=== PATIENT | female | born 1935 | race Caucasian/White ===

== ENCOUNTER 2017-06-12 13:14 | Outpatient (CLI) | payer MEDICARE, OTHER ==
--- NOTE | 2017-06-12 18:36 | ULT ---
DOPPLER ARTERIAL EVALUATION OF BOTH LOWER EXTREMITIES: Date: 06/12/17 INDICATION: Decreased pulse in feet. FINDINGS: VELOCITY MEASUREMENTS: ARTERY (cm/sec) WAVEFORM DESCRIPTION Right Lower Extremity: Common femoral 324 Biphasic Profunda femoral 121 Biphasic Proximal superficial femoral 151 Biphasic Mid superficial femoraL 122 Biphasic Distal superficial femoral 119 Biphasic Popliteal 89 Biphasic Anterior tibial 108 Monophasic Posterior tibia 123 Monophasic Dorsalis pedis 35 Monophasic Left Lower Extremity: Common femoral 61 Monophasic Profunda femoral 32 Monophasic Proximal superficial femoral 110 Monophasic Mid superficial femoral 64 Monophasic Distal superficial femoral 48 Monophasic Popliteal 43 Monophasic Anterior tibial 41 Monophasic Posterior tibial 32 Monophasic Dorsalis pedis 34 Monophasic IMPRESSION: 1. High grade stenosis involving the right common femoral artery with approaching 90% occlusion base d on the Morris scale measurements. Further evaluation with CTA of the abdomen and pelvis with bilatera l lower extremity runoff is recommended. 2. Diffuse monophasic flow within left common femoral may reflect proximal hemodynamically significa nt stenosis within the left external or common iliac vasculature. This could be further assessed with CTA examination recommended. Diffuse atherosclerotic disease is suspected within the left lower extr emity from the common femoral artery through the dorsalis pedis artery. 3. Severe atherosclerotic disease suspected within the anterior tibial, posterior tibial, and dorsal is pedis arteries of the right lower extremity. POS: [facility]
== END 2017-06-12 13:15 | disposition home or self-care (01) ==
LOC: ULT 13:14
PROVIDERS: ATTEND Family Medicine
DX: G62.9 Polyneuropathy, unspecified (principal); R09.89 Other specified symptoms and signs involving the circulatory and respiratory systems; I70.201 Unspecified atherosclerosis of native arteries of extremities, right leg
CPT/HCPCS: 93923

== ENCOUNTER 2017-07-05 07:59 | Inpatient (IN) | payer MEDICARE, OTHER ==
[2017-07-05 08:36] LABS: #Basophils 0.1 thou/uL (0.0-0.2); #Eosinphils 0.2 thou/uL (0.0-0.7); #Lymphocytes 1.9 thou/uL (1.20-3.40); #Monocytes 0.5 thou/uL (0.11-0.59); %Basophils 0.8 % (0.0-1.0); %Eosinophils 2.3 % (0.0-10.0); %Lymphocytes 24.4 % (21.0-51.0); Hematocrit 42.7 % (36.0-47.0); Red Blood Cell (RBC) Count 4.47 mill/uL (4.20-5.40); White Blood Cell (WBC) Count 7.6 thou/uL (4.8-10.8)
[2017-07-05 08:52] LABS: Anion Gap 13 mmol/L (10-20); BUN (Urea Nitrogen) 26 mg/dL (9.8-20.1); Calc. Creatinine Clearance 0 mL/min (70-130); Calcium 9.2 mg/dL (7.8-10.44); Carbon Dioxide 25 mmol/L (23-31); Chloride 103 mmol/L (98-107); Estimated GFR-MDRD 47
[2017-07-05] MEDS ORDERED: Heparin 1000 UNIT/NS 500ML(OR) 500 ML ONE (09:16)
[2017-07-05] MEDS ORDERED: Fentanyl 100 MCG/2 ML VIAL ONE (09:35)
[2017-07-05] MEDS ORDERED: Midazolam HCl 2 mg/2 ml Vial ONE (09:48)
[2017-07-05] MEDS ORDERED: Lidocaine 1% (PF) 30 ML VIAL ONE ×2 (10:13→10:43)
--- NOTE | 2017-07-05 12:43 | OP ---
PREPROCEDURE DIAGNOSIS: Severe bilateral lower extremity peripheral vascular disease with lifestyle limiting bilateral lower extremity claudication. HOUSE WORKER: Yaw Harris M.D. AERIAL INSTALLER: Solitario. POSTOPERATIVE DIAGNOSIS: Severe bilateral lower extremity peripheral vascular disease with lifestyle limiting bilateral lower extremity claudication. ANESTHESIA: Intravenous sedation and local at left groin access site. PROCEDURES PERFORMED: 1. Access left common femoral vein. 2. Access left common femoral artery. FINDINGS/INTERPRETATION: None. DESCRIPTION OF PROCEDURE: The patient was taken to angiography suite. She was prepped and draped in usual sterile fashion. Intravenous sedation was achieved with a combination of fentanyl and Versed. At the proposed left groin access site, local anesthesia was achieved with 1% Xylocaine. She had no palpable left femoral pulse which was known. Using ultrasound guidance, the left common femoral vein was inadvertently accessed with placement of a 5-Japanese sheath. Ultrasound guided access of the left common femoral artery was then achieved with the micropuncture needle, however, guidewire would not pass more than 5-6 cm. Access was lost, however, direct access was achieved with the conventional needle. Multiple guidewires were unsuccessful at cephalad passage through what was presumed to be a distal external iliac artery stenosis. Case was, therefore , aborted. 5-Japanese sheath in the common femoral vein was removed. Gentle pressure was held. Total contrast 5 mL. FLUOROSCOPY TIME: 3.2 minutes. ESTIMATED BLOOD LOSS: 50 mL. MTDD
[2017-07-05] MEDS ORDERED: HYDROcodone/Acetaminophen 5/325 mg Tablet PO PRN ×2 (13:43)
[2017-07-05] MEDS ORDERED: Ondansetron HCl/PF 4 MG/2 ML Vial SLOW IVP PRN (13:44)
[2017-07-05] MEDS ORDERED: Dextrose 50% Abboject 50 ML SYRINGE IVP PRN (13:45)
[2017-07-05] MEDS ORDERED: Dextrose 5% in Water 1,000 ML IV PRN (13:45)
[2017-07-05] MEDS ORDERED: Insulin Regular 300 UNITS/3 ML VIAL SC PRN (13:45)
[2017-07-05] MEDS ORDERED: Acetaminophen 325 MG TAB PO PRN (13:49)
[2017-07-05] MEDS ORDERED: traMADol HCl 50 MG TAB PO PRN (13:49)
[2017-07-05] MEDS ORDERED: Iopamidol 370 76% 50 ML VIAL FS ONE (15:31)
[2017-07-05 18:04] VITALS: BMI 26.9
[2017-07-05] MEDS ORDERED: Aspirin 81 mg Enteric Coated Tablet PO SCH (21:00)
[2017-07-05] MEDS: Pramipexole Di-HCl 0.25 MG TAB PO SCH (21:28)
[2017-07-05] MEDS: Ferrous Sulfate 325 MG TAB PO SCH (21:28)
[2017-07-05] MEDS: Calcium Carbonate + Vit D 1 TAB PO SCH (21:28)
[2017-07-05] MEDS: Gabapentin 300 MG CAP PO SCH (21:28)
[2017-07-06] MEDS: Levothyroxine Sodium 125 MCG TAB PO SCH (05:30)
[2017-07-06] MEDS ORDERED: Clindamycin/D5W 900 MG in Premix Bag 1 BAG IVPB SCH (06:00)
[2017-07-06] MEDS ORDERED: Clindamycin/D5W 900 mg/50 ml Premix Bag ONE (06:21)
[2017-07-06] MEDS ORDERED: Levofloxacin 500 mg/D5W 100 ml Premix Bag ONE (06:21)
[2017-07-06] MEDS ORDERED: Iothalamate Meglumine 60% 50 ML VIAL FS ONE ×2 (06:31→09:11)
[2017-07-06] MEDS ORDERED: Protamine Sulfate 50 MG/5 ML VIAL ONE ×2 (06:31→16:48)
[2017-07-06] MEDS ORDERED: Heparin 5,000 UNITS/ML VIAL ONE (06:31)
[2017-07-06] MEDS ORDERED: Fentanyl 250 MCG/5 ML VIAL ONE (07:41)
[2017-07-06] MEDS ORDERED: GLYCOTROL PO SCH (09:00)
[2017-07-06] MEDS ORDERED: Fentanyl 100 MCG/2 ML VIAL ONE ×2 (11:46→12:38)
[2017-07-06] MEDS ORDERED: Promethazine HCl 25 MG/ML VIAL SLOW IVP PRN (11:49)
[2017-07-06] MEDS ORDERED: Ondansetron HCl/PF 4 MG/2 ML Vial ONE (11:49)
[2017-07-06] MEDS ORDERED: Ondansetron HCl/PF 4 MG/2 ML Vial IVP PRN ×2 (11:49→13:24)
[2017-07-06] MEDS ORDERED: Promethazine HCl 25 MG/ML VIAL IM PRN ×2 (11:49→13:24)
[2017-07-06] MEDS ORDERED: Promethazine HCl 25 MG SUPP PR PRN (13:24)
[2017-07-06] MEDS ORDERED: Fentanyl 100 MCG/2 ML VIAL SLOW IVP PRN ×2 (13:24)
[2017-07-06] MEDS ORDERED: hydrALAZINE 20 MG/ML VIAL SLOW IVP PRN (13:24)
[2017-07-06] MEDS ORDERED: Acetaminophen 325 MG TAB PO PRN (13:24)
[2017-07-06] MEDS ORDERED: HYDROcodone/Acetaminophen 5/325 mg Tablet PO PRN (13:24)
[2017-07-06] MEDS ORDERED: Morphine PF 1 MG/ML SYR IVP PRN (13:24)
[2017-07-06] MEDS: metFORMIN XR 500 MG TAB PO SCH (13:26)
[2017-07-06] MEDS: Gabapentin 300 MG CAP PO SCH ×2 (13:27→20:52)
[2017-07-06] MEDS: Cyanocobalamin (Vitamin B-12) 1,000 MCG TAB PO SCH (13:27)
[2017-07-06] MEDS: Clindamycin/D5W 900 MG in Premix Bag 1 BAG IVPB SCH ×2 (13:47→20:52)
[2017-07-06] MEDS: HYDROcodone/Acetaminophen 5/325 mg Tablet PO PRN (13:50)
--- NOTE | 2017-07-06 14:06 | OP ---
PREOPERATIVE DIAGNOSIS: Severe bilateral lower extremity peripheral vascular disease with lifestyle limiting bilateral lower extremity claudication. SURGEON: Yaw Harris M.D. FUSING LINE INSPECTOR: None. POSTOPERATIVE DIAGNOSIS: Severe bilateral lower extremity peripheral vascular disease with lifestyle limiting bilateral lower extremity claudication. SPONGE AND NEEDLE COUNTS: Correct. ANESTHESIA: General. OPERATION PERFORMED: 1. Aortogram with iliofemoral runoff. 2. Selective left common iliac angiogram. 3. Right common femoral endarterectomy with bovine pericardium patch angioplasty. FINDINGS/INTERPRETATIONS: 1. Aortogram with iliofemoral runoff was noteworthy for a focal, subtotaled mid -distal left external iliac artery stenosis approximately 4 cm above the pelvic brim. Left common femoral artery and origins of the SFA and profunda were small , but patent. 2. Bulky, obstructive, calcified plaque involved the proximal-mid right common femoral artery. Proximal aspects of the SFA and profunda were patent with no appreciable plaque. DESCRIPTION OF OPERATION: The patient was taken to the operating room. Following the induction of general endotracheal anesthesia, the patient was prepped and draped in the usual sterile fashion. A small, oblique right groin incision was made above the inguinal crease. Dissection was carried down to the common femoral artery. Proximal aspects of the SFA and profunda were developed. At a point above the palpable plaque involving the common femoral artery, the artery was accessed with passage of the Bentson guidewire and 5- Dutch sheath. Contra catheter was advanced. Aortogram with iliofemoral runoff was performed. This did not fully delineate the presumed stenosis in the left external iliac artery. Bifurcation required negotiation with the Bentson guidewire and a RIM catheter. Rim catheter was exchanged for the Contra catheter. Contra catheter tip was now parked in the left common iliac artery. Selective left iliac angiogram was performed. This fully delineated the focal, subtotaled stenosis in the mid-distal left external iliac artery. Guidewire and catheter, however, could not bridge the stenosis. Guidewire and Contra catheter were withdrawn. Heparin dose had been given. Vascular clamps were applied to the proximal common femoral artery, SFA, and profunda. It should be mentioned that the profunda did bifurcate shortly after its takeoff. Common femoral arteriotomy was created extending cephalad to a point above the plaque and distally onto to the proximal SFA. Endarterectomy was performed. Approximately 7-8 mm above the origins of the SFA and profunda, posterior intima was tacked with a running 7-0 Prolene suture. SFA and profunda did have excellent backbleeding. Arteriotomy was then closed with the bovine pericardium patch and running 6-0 Prolene suture. Prior to securing the patch, appropriate flushing and deairing maneuvers were performed. Clamps were removed from the common femoral artery and then the SFA and profunda. The patient now had return of palpable right popliteal and dorsalis pedis pulses as well as a distinctly stronger Doppler signal heard at the posterior tibial. Heparin was partially reversed with protamine. Copious irrigation was performed. Meticulous hemostasis was assured. Wound was then closed at its deepest layer with interrupted [id number] 2-0 Vicryl sutures. Subcutaneous tissues were reapproximated with a running 2-0 Vicryl suture followed by skin closure with a 4-0 Monocryl subcuticular stitch. Dermabond was applied. The patient was subsequently awakened and taken to the recovery room. ESTIMATED BLOOD LOSS: 50 mL. FLUOROSCOPY TIME: 18.3 minutes. TOTAL CONTRAST: 25 mL. MTDD
[2017-07-06] MEDS: Amlodipine 10 MG TAB PO SCH (14:30)
[2017-07-06] MEDS: Hydrochlorothiazide 25 MG TAB PO SCH (14:31)
[2017-07-06] MEDS: Lisinopril 20 MG TAB PO SCH (14:31)
[2017-07-06] MEDS: Sodium Chloride 0.9% 1,000 ML IV SCH (15:32)
[2017-07-06] MEDS ORDERED: Heparin 10,000 UNITS/ 10 ML VIAL ONE (16:48)
[2017-07-06] MEDS ORDERED: Propofol 200 MG/20 ML VIAL ONE (16:48)
[2017-07-06] MEDS ORDERED: PHENYLEPHRINE-NS 100 MCG/ML 10 ML SYRINGE ONE (16:48)
[2017-07-06] MEDS: Calcium Carbonate + Vit D 1 TAB PO SCH (20:52)
[2017-07-06] MEDS: Ferrous Sulfate 325 MG TAB PO SCH (20:52)
[2017-07-06] MEDS: Pramipexole Di-HCl 0.25 MG TAB PO SCH (20:52)
[2017-07-07] MEDS: Clindamycin/D5W 900 MG in Premix Bag 1 BAG IVPB SCH ×2 (01:48→09:46)
[2017-07-07] MEDS: HYDROcodone/Acetaminophen 5/325 mg Tablet PO PRN ×4 (01:49→18:32)
[2017-07-07] MEDS: Sodium Chloride 0.9% 1,000 ML IV SCH ×2 (02:45→17:28)
[2017-07-07] MEDS: Levothyroxine Sodium 125 MCG TAB PO SCH (05:56)
[2017-07-07] MEDS: Lisinopril 20 MG TAB PO SCH (09:48)
[2017-07-07] MEDS: Amlodipine 10 MG TAB PO SCH (09:48)
[2017-07-07] MEDS: Cyanocobalamin (Vitamin B-12) 1,000 MCG TAB PO SCH (09:48)
[2017-07-07] MEDS: metFORMIN XR 500 MG TAB PO SCH (09:48)
[2017-07-07] MEDS: Clopidogrel Bisulfate 75 MG TAB PO SCH (09:49)
[2017-07-07] MEDS: Hydrochlorothiazide 25 MG TAB PO SCH (09:49)
[2017-07-07] MEDS: Gabapentin 300 MG CAP PO SCH ×2 (09:49→20:07)
[2017-07-07] MEDS: Clindamycin 150 MG CAP PO SCH ×2 (14:48→20:05)
[2017-07-07] MEDS: Calcium Carbonate + Vit D 1 TAB PO SCH (20:06)
[2017-07-07] MEDS: Pramipexole Di-HCl 0.25 MG TAB PO SCH (20:06)
[2017-07-07] MEDS: Ferrous Sulfate 325 MG TAB PO SCH (20:07)
[2017-07-08] MEDS: Clindamycin 150 MG CAP PO SCH (03:50)
[2017-07-08] MEDS: Sodium Chloride 0.9% 1,000 ML IV SCH (04:52)
[2017-07-08] MEDS: Levothyroxine Sodium 125 MCG TAB PO SCH (06:21)
[2017-07-08 08:55] VITALS: BP 109/69; TEMP 98.1
[2017-07-08] MEDS: metFORMIN XR 500 MG TAB PO SCH (10:54)
[2017-07-08] MEDS: Clopidogrel Bisulfate 75 MG TAB PO SCH (10:56)
[2017-07-08] MEDS: Amlodipine 10 MG TAB PO SCH (10:57)
[2017-07-08] MEDS: Cyanocobalamin (Vitamin B-12) 1,000 MCG TAB PO SCH (10:58)
[2017-07-08] MEDS: Lisinopril 20 MG TAB PO SCH (10:59)
[2017-07-08] MEDS: Hydrochlorothiazide 25 MG TAB PO SCH (10:59)
[2017-07-08] MEDS: Gabapentin 300 MG CAP PO SCH (10:59)
[2017-07-08] MEDS: HYDROcodone/Acetaminophen 5/325 mg Tablet PO PRN (11:29)
--- NOTE | 2017-07-08 14:11 | DIS ---
REASON FOR ADMISSION: Left carotid endarterectomy. CLINICAL RESUME: The patient is an 81-year-old female found to have a severe bilateral carotid arter y disease. She underwent right CEA on 05/24/2017. Yesterday, she was admitted and underwent left CE A with bovine pericardium patch angioplasty. See operative report for details. Her postoperative co urse has been unremarkable and as of this morning, she was considered stable for discharge. Follow u p will be arranged in my office in 2 weeks or sooner p.r.n. WOUND CARE: As instructed. DIET: 1800-calorie ADA. ACTIVITY: Light for the next 4-5 days. DISCHARGE MEDICATIONS: She is to resume her complete home regimen without change. This includes piero ly aspirin and Plavix.
--- NOTE | 2017-07-08 14:37 | DIS ---
REASON FOR ADMISSION: Right femoral endarterectomy and intraoperative angiography. CLINICAL RESUME: The patient is an 81-year-old female with lifestyle limiting bilateral lower extremity claudication. Outpatient CTA was most noteworthy for severe stenoses involving the right common femoral artery and left external iliac artery. Attempted percutaneous intervention to the left external iliac artery was unsuccessful as the lesion could not be crossed. She was subsequently admitted and underwent right common femoral endarterectomy with intraoperative angiography. The angiography portion did substantiate a subtotaled mid distal left external iliac artery stenosis. Right common femoral artery was involved with bulky, obstructive, calcified plaque. Following endarterectomy with bovine pericardium patch angioplasty, the patient had return of palpable right popliteal, dorsalis pedis, and posterior tibial pulses. Additionally, her right lower extremity claudication resolved. As of today, the patient was considered stable for discharge. Follow up will be arranged in my office in 2 weeks or sooner p.r.n. At that follow setting, plans were made for left femoral endarterectomy and ipsilateral retrograde intervention to the left external iliac artery stenosis. DIET: 1800 calorie ADA. WOUND CARE: As instructed. ACTIVITY: Light for the next 4-5 days. DISCHARGE MEDICATIONS: She is to resume her complete home regimen. New medication, Plavix 75 mg daily. MTDD
[2017-07-10] MEDS ORDERED: Alendronate Sodium 70 mg Tablet PO SCH (06:00)
== END 2017-07-08 11:41 | disposition home or self-care (01) | DRG 254 ==
LOC: CCL 07:59 → SURG A 13:00
PROVIDERS: ADMIT Thoracic Surgery (Cardiothoracic Vascular Surgery); ATTEND Thoracic Surgery (Cardiothoracic Vascular Surgery)
PROC: 04JY3ZZ Inspection of Lower Artery, Percutaneous Approach (ICD-10-PCS; 2017-07-05)
PROC: B41D1ZZ Fluoroscopy of Aorta and Bilateral Lower Extremity Arteries using Low Osmolar Contrast (ICD-10-PCS; principal; 2017-07-06)
PROC: 04CK0ZZ Extirpation of Matter from Right Femoral Artery, Open Approach (ICD-10-PCS; 2017-07-06)
PROC: 04UK0KZ Supplement Right Femoral Artery with Nonautologous Tissue Substitute, Open Approach (ICD-10-PCS; 2017-07-06)
DX: I70.213 Atherosclerosis of native arteries of extremities with intermittent claudication, bilateral legs (principal); E11.9 Type 2 diabetes mellitus without complications; I10 Essential (primary) hypertension; E03.9 Hypothyroidism, unspecified; Z87.891 Personal history of nicotine dependence; Z88.0 Allergy status to penicillin
CPT/HCPCS: 36416; 76001; 76942; 80048; 85025; 99152; 99153; C1769; C1887; G8978-GP-CK; G8979-GP-CI; J0360; J1642; J1644; J1956; J2001; J2250; J2405; J2704; J2720; J3010; J3490; Q9961

== ENCOUNTER 2017-07-24 05:39 | Inpatient (IN) | payer MEDICARE, OTHER ==
[2017-07-21 15:04] VITALS: BMI 27.8
[2017-07-24] MEDS ORDERED: Clindamycin/D5W 600 mg/50 ml Premix Bag ONE (06:18)
[2017-07-24] MEDS ORDERED: Levofloxacin 500 mg/D5W 100 ml Premix Bag ONE (06:18)
[2017-07-24] MEDS ORDERED: Clindamycin/D5W 900 mg/50 ml Premix Bag ONE (06:21)
[2017-07-24 06:23] LABS: #Basophils 0.1 thou/uL (0.0-0.2); #Eosinphils 0.2 thou/uL (0.0-0.7); #Lymphocytes 2.2 thou/uL (1.20-3.40); #Monocytes 0.7 thou/uL (0.11-0.59); #Neutrophils 5.3 thou/uL (1.40-6.50); %Basophils 0.8 % (0.0-1.0); %Eosinophils 2.8 % (0.0-10.0); %Lymphocytes 26.2 % (21.0-51.0); %Monocytes 7.9 % (0.0-10.0); Hematocrit 39.5 % (36.0-47.0); Mean Platelet Volume 7.5 fL (7.4-10.4); White Blood Cell (WBC) Count 8.5 thou/uL (4.8-10.8)
[2017-07-24] MEDS ORDERED: Iothalamate Meglumine 60% 50 ML VIAL FS ONE (06:36)
[2017-07-24] MEDS ORDERED: Protamine Sulfate 50 MG/5 ML VIAL ONE (06:36)
[2017-07-24] MEDS ORDERED: Heparin 5,000 UNITS/ML VIAL ONE (06:36)
[2017-07-24 06:49] LABS: Anion Gap 15 mmol/L (10-20); BUN (Urea Nitrogen) 22 mg/dL (9.8-20.1); Calc. Creatinine Clearance 44 mL/min (70-130); Calcium 9.4 mg/dL (7.8-10.44); Carbon Dioxide 25 mmol/L (23-31); Chloride 105 mmol/L (98-107); Estimated GFR-MDRD 42
[2017-07-24] MEDS ORDERED: Fentanyl 100 MCG/2 ML VIAL ONE (07:35)
[2017-07-24] MEDS ORDERED: PHENYLEPHRINE-NS 100 MCG/ML 10 ML SYRINGE ONE ×2 (09:24→10:50)
[2017-07-24] MEDS ORDERED: Calcium Chloride 1 GM/10 ML Abboject SYRINGE ONE (10:21)
[2017-07-24] MEDS ORDERED: Thrombin 5000 UNITS/5 ML VIAL ONE (10:21)
[2017-07-24] MEDS ORDERED: [UNRECOGNIZED DRUG - OTHER] PO PRN (10:43)
[2017-07-24] MEDS ORDERED: TRAMADOL HCL PO PRN (10:43)
[2017-07-24] MEDS ORDERED: ACETAMINOPHEN PO PRN (10:43)
[2017-07-24] MEDS ORDERED: Morphine 4 MG/ML VIAL SLOW IVP PRN (10:44)
[2017-07-24] MEDS ORDERED: Acetaminophen 325 MG TAB PO PRN (10:44)
[2017-07-24] MEDS ORDERED: traMADol HCl 50 MG TAB PO PRN (10:44)
[2017-07-24] MEDS ORDERED: hydrALAZINE 20 MG/ML VIAL SLOW IVP PRN (10:44)
[2017-07-24] MEDS ORDERED: Promethazine HCl 25 MG/ML VIAL IM PRN ×2 (10:44→11:14)
[2017-07-24] MEDS ORDERED: Promethazine HCl 25 MG SUPP PR PRN (10:44)
[2017-07-24] MEDS ORDERED: HYDROcodone/Acetaminophen 5/325 mg Tablet PO PRN (10:44)
[2017-07-24] MEDS ORDERED: Ondansetron HCl/PF 4 MG/2 ML Vial IVP PRN ×2 (10:44→11:14)
[2017-07-24] MEDS ORDERED: Fentanyl 100 MCG/2 ML VIAL SLOW IVP PRN (10:44)
[2017-07-24] MEDS ORDERED: ePHEDrine/0.9% NaCl/PF SYRINGE 50 mg/10 ml ONE (10:50)
[2017-07-24] MEDS ORDERED: Heparin 10,000 UNITS/ 10 ML VIAL ONE (10:50)
[2017-07-24] MEDS ORDERED: Propofol 200 MG/20 ML VIAL ONE (10:50)
[2017-07-24] MEDS ORDERED: Lidocaine 1% PF 5 ML VIAL ONE (10:50)
[2017-07-24] MEDS ORDERED: Promethazine HCl 25 MG/ML VIAL SLOW IVP PRN (11:14)
--- NOTE | 2017-07-24 12:26 | OP ---
DATE OF PROCEDURE: 07/24/2017 PREOPERATIVE DIAGNOSES: Severe left lower extremity peripheral vascular disease with lifestyle limiting left lower extremity claudication. SURGEON: Dr. Yaw Harris FEED HANDLER: None. POSTOPERATIVE DIAGNOSES: Severe left lower extremity peripheral vascular disease with lifestyle limiting left lower extremity claudication. SPONGE AND NEEDLE COUNTS: Correct. ANESTHESIA: General. OPERATION PERFORMED: 1. Selective retrograde left iliac angiogram via open left femoral exposure. 2. Stent left external iliac artery (Innova 8 x 40). 3. Left femoral endarterectomy with bovine pericardium patch angioplasty. FINDINGS AT OPERATION: 1. Subtotaled, 1.5-2 cm left external iliac artery stenosis. 2. Bulky, calcified plaque involving the left common femoral artery. DESCRIPTION OF OPERATION: The patient was taken to the operating room. Following the induction of general endotracheal anesthesia, the patient was prepped and draped in the usual sterile fashion. An oblique left groin incision was made above the inguinal crease. Dissection was carried down to the left common femoral artery with identification of the proximal SFA and profunda. There was no discernible pulse. The calcified plaque involving the mid distal common femoral artery was palpable. Superior to this the artery was accessed with the access needle and N2Care guidewire. Guidewire was able to negotiate the perceived left external iliac artery stenosis as guidewire was followed up the aorta. The short marker 6 Afghan sheath was placed. Retrograde left iliac angiogram was performed. Findings as described above. To size the left external iliac artery a [place] 7 x 40 balloon was passed. This led to selection of the 8 x 40 Innova stent. Balloon catheter was removed. Stent catheter was passed. Stent was deployed. The stent was postdilated at the proximal and distal ends with a [place] 8 x 40 balloon with a third inflation performed at the mid aspect of the stent where a slight but appreciable waist was corrected. Retrograde angiogram revealed an excellent result. Despite the presence of the sheath, the common femoral artery now had a palpable pulse. Heparin dose had been given. Vascular clamps were applied to the very proximal common femoral artery as well as the SFA and profunda. Sheath was removed. Arteriotomy was elongated distally onto the proximal SFA. The proximal SFA and profunda had no appreciable plaque. Endarterectomy was performed in standard fashion. Two 7-0 Prolene tacking sutures were required. Excellent backbleeding was observed from the profunda and SFA. The arteriotomy was then closed with the bovine pericardium patch and running 6-0 Prolene suture. Prior to securing the patch, appropriate flushing and deairing maneuvers were performed. Clamps were removed from the profunda, SFA, and common femoral artery. The patient now had a strongly palpable pulse across the patched common femoral artery and proximal aspects of the SFA and profunda. Heparin was partially reversed with protamine. Copious irrigation was performed. Meticulous hemostasis was assured. Wound was then treated with platelet-enriched and platelet-poor plasma. The wound was closed in layers with running 2-0 Vicryl sutures followed by skin closure with a 3-0 Vicryl subcuticular stitch. Dermabond was applied. The patient was subsequently awakened and taken to the recovery room in stable condition. ESTIMATED BLOOD LOSS: 30 mL. CONTRAST: Total contrast 50 mL. FLUOROSCOPY TIME 10.5 minutes. At this time patient had return of palpable left popliteal and dorsalis pedis pulses with distinctly stronger Doppler signal heard at the PT. MTDD
[2017-07-24] MEDS: Sodium Chloride 0.9% 1,000 ML IV SCH ×2 (13:51→20:33)
[2017-07-24] MEDS: Clindamycin/D5W 900 MG in Premix Bag 1 BAG IVPB SCH ×3 (13:51→18:47)
[2017-07-24] MEDS: HYDROcodone/Acetaminophen 5/325 mg Tablet PO PRN (18:49)
[2017-07-24] MEDS: Calcium Carbonate + Vit D 1 TAB PO SCH (20:37)
[2017-07-24] MEDS: Ferrous Sulfate 325 MG TAB PO SCH (20:38)
[2017-07-24] MEDS: Gabapentin 300 MG CAP PO SCH (20:38)
[2017-07-24] MEDS: Pramipexole Di-HCl 0.25 MG TAB PO SCH (20:39)
[2017-07-24] MEDS ORDERED: Aspirin 81 mg Enteric Coated Tablet PO SCH (21:00)
[2017-07-24] MEDS: Insulin Regular 300 UNITS/3 ML VIAL SC PRN (22:03)
[2017-07-25] MEDS: Clindamycin/D5W 900 MG in Premix Bag 1 BAG IVPB SCH ×2 (01:15→05:12)
[2017-07-25] MEDS: HYDROcodone/Acetaminophen 5/325 mg Tablet PO PRN ×2 (01:20→21:26)
[2017-07-25] MEDS: Sodium Chloride 0.9% 1,000 ML IV SCH ×2 (05:12→18:16)
[2017-07-25] MEDS: Levothyroxine Sodium 125 MCG TAB PO SCH (05:12)
[2017-07-25 05:35] LABS: Anion Gap 10 mmol/L (10-20); BUN (Urea Nitrogen) 22 mg/dL (9.8-20.1); Calc. Creatinine Clearance 58 mL/min (70-130); Calcium 8.3 mg/dL (7.8-10.44); Carbon Dioxide 25 mmol/L (23-31); Chloride 106 mmol/L (98-107); Estimated GFR-MDRD 58
[2017-07-25] MEDS: Gabapentin 300 MG CAP PO SCH ×2 (09:14→21:28)
[2017-07-25] MEDS: Amlodipine 10 MG TAB PO SCH (09:14)
[2017-07-25] MEDS: metFORMIN XR 500 MG TAB PO SCH (09:14)
[2017-07-25] MEDS: Cyanocobalamin (Vitamin B-12) 1,000 MCG TAB PO SCH (09:15)
[2017-07-25] MEDS: Stress 600 With Zinc 1 TAB PO SCH (09:15)
[2017-07-25] MEDS: Clopidogrel Bisulfate 75 MG TAB PO SCH ×2 (09:15→09:19)
[2017-07-25] MEDS: Hydrochlorothiazide 25 MG TAB PO SCH (09:15)
[2017-07-25] MEDS: Lisinopril 20 MG TAB PO SCH (09:15)
[2017-07-25] MEDS: Fentanyl 100 MCG/2 ML VIAL SLOW IVP PRN ×2 (10:43→15:49)
[2017-07-25] MEDS: Pramipexole Di-HCl 0.25 MG TAB PO SCH (21:27)
[2017-07-25] MEDS: Ferrous Sulfate 325 MG TAB PO SCH (21:28)
[2017-07-25] MEDS: Calcium Carbonate + Vit D 1 TAB PO SCH (21:28)
[2017-07-26] MEDS: Sodium Chloride 0.9% 1,000 ML IV SCH ×3 (03:53→22:49)
[2017-07-26] MEDS: Levothyroxine Sodium 125 MCG TAB PO SCH (06:01)
[2017-07-26] MEDS: HYDROcodone/Acetaminophen 5/325 mg Tablet PO PRN ×3 (06:04→20:20)
[2017-07-26] MEDS: Stress 600 With Zinc 1 TAB PO SCH (09:16)
[2017-07-26] MEDS: Hydrochlorothiazide 25 MG TAB PO SCH (09:17)
[2017-07-26] MEDS: Clopidogrel Bisulfate 75 MG TAB PO SCH (09:17)
[2017-07-26] MEDS: Gabapentin 300 MG CAP PO SCH ×2 (09:17→20:19)
[2017-07-26] MEDS: metFORMIN XR 500 MG TAB PO SCH (09:17)
[2017-07-26] MEDS: Amlodipine 10 MG TAB PO SCH (09:17)
[2017-07-26] MEDS: Lisinopril 20 MG TAB PO SCH (09:17)
[2017-07-26] MEDS: Cyanocobalamin (Vitamin B-12) 1,000 MCG TAB PO SCH (09:18)
[2017-07-26] MEDS: Insulin Regular 300 UNITS/3 ML VIAL SC PRN (12:30)
[2017-07-26] MEDS: Ferrous Sulfate 325 MG TAB PO SCH (20:19)
[2017-07-26] MEDS: Pramipexole Di-HCl 0.25 MG TAB PO SCH (20:19)
[2017-07-26] MEDS: Calcium Carbonate + Vit D 1 TAB PO SCH (20:19)
[2017-07-27] MEDS: Levothyroxine Sodium 125 MCG TAB PO SCH (05:31)
[2017-07-27] MEDS: HYDROcodone/Acetaminophen 5/325 mg Tablet PO PRN (07:38)
[2017-07-27 08:00] VITALS: BP 151/79
[2017-07-27] MEDS: Lisinopril 20 MG TAB PO SCH (09:22)
[2017-07-27] MEDS: metFORMIN XR 500 MG TAB PO SCH (09:22)
[2017-07-27] MEDS: Clopidogrel Bisulfate 75 MG TAB PO SCH (09:22)
[2017-07-27] MEDS: Gabapentin 300 MG CAP PO SCH (09:23)
[2017-07-27] MEDS: Hydrochlorothiazide 25 MG TAB PO SCH (09:23)
[2017-07-27] MEDS: Cyanocobalamin (Vitamin B-12) 1,000 MCG TAB PO SCH (09:23)
[2017-07-27] MEDS: Amlodipine 10 MG TAB PO SCH (09:23)
[2017-07-27] MEDS: Stress 600 With Zinc 1 TAB PO SCH (09:26)
[2017-07-27 10:45] VITALS: TEMP 98
[2017-07-27] MEDS: Sodium Chloride 0.9% 1,000 ML IV SCH (11:09)
--- NOTE | 2017-07-27 13:12 | DIS ---
REASON FOR ADMISSION: Left lower extremity revascularization. CLINICAL RESUME: The patient is an 81-year-old female who underwent right femoral endarterectomy with bovine pericardium patch angioplasty and intraoperative angio's on 07/06/2017 which provided relief of her right lower extremity claudication and return of palpable right popliteal, DP, and PT pulses. On 07/24/2017 she was readmitted and underwent stenting to the left external iliac artery and left femoral endarterectomy with bovine pericardium patch angioplasty. This did provide relief of her left lower extremity claudication with return of palpable left popliteal and DP pulses and a much stronger Doppler signal heard at the PT. As of today, she was considered stable for discharge. Followup arranged in my office in 2 weeks or sooner p.r.n. Wound care as instructed. ACTIVITY: Light for the next 4-5 days. DIET: 1800-calorie ADA. DISCHARGE MEDICATIONS: She is to resume her complete home regimen without change. This includes the daily 81 mg aspirin and 75 mg Plavix. NEW MEDICATION: Amma 5/325 mg 1-2 q.4-6 hours p.r.n. MTDD
[2017-07-31] MEDS ORDERED: Alendronate Sodium 70 mg Tablet PO SCH (06:00)
== END 2017-07-27 11:40 | disposition home health service (06) | DRG 254 ==
LOC: SURG A 05:39
PROVIDERS: ADMIT Thoracic Surgery (Cardiothoracic Vascular Surgery); ATTEND Thoracic Surgery (Cardiothoracic Vascular Surgery)
PROC: 04CL0ZZ Extirpation of Matter from Left Femoral Artery, Open Approach (ICD-10-PCS; principal; 2017-07-24)
PROC: 04UL0KZ Supplement Left Femoral Artery with Nonautologous Tissue Substitute, Open Approach (ICD-10-PCS; 2017-07-24)
PROC: 047J3DZ Dilation of Left External Iliac Artery with Intraluminal Device, Percutaneous Approach (ICD-10-PCS; 2017-07-24)
DX: I70.213 Atherosclerosis of native arteries of extremities with intermittent claudication, bilateral legs (principal); E11.51 Type 2 diabetes mellitus with diabetic peripheral angiopathy without gangrene; I10 Essential (primary) hypertension; Z87.891 Personal history of nicotine dependence; Z90.49 Acquired absence of other specified parts of digestive tract; Z90.710 Acquired absence of both cervix and uterus; I70.8 Atherosclerosis of other arteries
CPT/HCPCS: 36415; 36416; 76001; 80048; 85025; C1725; G8978-GP-CI; G8979-GP-CI; J1642; J1644; J1956; J2001; J2704; J2720; J3010; J3490; Q9961

== ENCOUNTER 2017-10-15 20:08 | Emergency (ER) | payer MEDICARE, OTHER ==
[~2017-10-15 20:08] MED LIST: ISOVUE-370 76%-LOCM 1 ML ONE
[2017-10-15] MEDS ORDERED: Morphine 4 MG/ML VIAL ONE (21:13)
[2017-10-15] MEDS ORDERED: Ondansetron HCl/PF 4 MG/2 ML Vial ONE (21:13)
[2017-10-15 21:46] LABS: #Eosinphils 0.2 thou/uL (0.0-0.7); #Lymphocytes 1.9 thou/uL (1.20-3.40); #Monocytes 0.6 thou/uL (0.11-0.59); #Neutrophils 4.5 thou/uL (1.40-6.50); %Basophils 0.4 % (0.0-1.0); %Lymphocytes 26.4 % (21.0-51.0); %Neutrophils 62.2 % (42.0-75.0); Hemoglobin 12.2 g/dL (12.0-16.0); Mean Corpuscular HGB CONC 32.9 g/dL (32.0-36.0); Mean Corpuscular Hemoglobin 29.7 pg (27.0-31.0); Mean Corpuscular Volume 90.1 fl (81.0-99.0); Mean Platelet Volume 7.4 fL (7.4-10.4); Platelet Count 276 thou/uL (130-400); RBC Distribution Width 12.9 % (11.5-14.5); Red Blood Cell (RBC) Count 4.11 mill/uL (4.20-5.40); White Blood Cell (WBC) Count 7.2 thou/uL (4.8-10.8)
[2017-10-15 21:53] LABS: INR-International Normal Ratio 1.1; PTT 36.4 SEC (22.9-36.1); Prothrombin Time 14.5 SEC (12.0-14.7)
[2017-10-15 22:05] LABS: CKMB 2.8 ng/mL (0-6.6); Troponin I Less than 0.010 ng/mL (< 0.028)
[2017-10-15 22:15] LABS: ALT (SGPT) 11 U/L (8-55); AST (SGOT) 15 U/L (5-34); Albumin 4.3 g/dL (3.4-4.8); Alkaline Phosphatase 57 U/L (40-150); Anion Gap 15 mmol/L (10-20); BUN (Urea Nitrogen) 35 mg/dL (9.8-20.1); Bilirubin, Total 0.3 mg/dL (0.2-1.2); CRP (Inflammatory) Less than 0.50 mg/dL (= or < 0.5); Calc. Creatinine Clearance 0 mL/min (70-130); Calcium 9.5 mg/dL (7.8-10.44); Carbon Dioxide 23 mmol/L (23-31); Chloride 101 mmol/L (98-107); Estimated GFR-MDRD 46; Globulin 2.9 g/dL (2.4-3.5); Glucose 130 mg/dL (83-110); Potassium 4.8 mmol/L (3.5-5.1); Protein, Total 7.2 g/dL (6.0-8.3); Sodium 134 mmol/L (136-145)
--- NOTE | 2017-10-15 23:55 | CT ---
CT ANGIOGRAM OF THE AORTA WITH BILATERAL LOWER EXTREMITY RUNOFF WITH IV CONTRAST AND 3D POST PROCESSI NG: History: Bilateral groin pain with stents placed in July 2014 vertebral arteries. Reports numbnes s and tingling in bilateral feet. Patient also has a history of peritoneal neuropathy. FINDINGS: Comparison made with exam of 06-18-17. There are vascular calcifications and focal atherosclerotic formation in the peripheral arterial syst em without evidence of high grade stenosis or occlusion. No evidence of abdominal aortic aneurysm or dissection is seen. There is good flow in the arteries of the lower extremities with two vessel flow to the ankles on either side. No high grade stenosis is seen at the origins of the celiac, IMAs, or t he renal arteries. There is a calcified granuloma in the right lung base. No free air or free fluid is seen in the abdom en or pelvis. There are small renal cysts. The patient is post cholecystectomy and hysterectomy. Panc reas and adrenal glands are normal. No hypervascular liver mass is seen. There are degenerative bose es in the spine. IMPRESSION: Atherovascular disease without evidence of significant stenosis or occlusion. 3 Vessel flow is noted to ankles bilaterally. POS: [facility]
== END 2017-10-16 01:10 | disposition home or self-care (01) ==
LOC: ERS 20:08
DX: L03.314 Cellulitis of groin (principal); E03.9 Hypothyroidism, unspecified; I10 Essential (primary) hypertension; E11.40 Type 2 diabetes mellitus with diabetic neuropathy, unspecified; F32.9 Major depressive disorder, single episode, unspecified
CPT/HCPCS: 75635; 80053; 82553; 83605; 84484; 85025; 85610; 85652; 85730; 86140; 93005; 96374; 96375; J2270; J2405

== ENCOUNTER 2017-11-07 13:47 | Emergency (ER) | payer MEDICARE, OTHER ==
--- NOTE | 2017-11-07 14:34 | RAD ---
PORTABLE CHEST: 11/07/2017 PROVIDED CLINICAL HISTORY: Dizziness. Fall. COMPARISON: 09/27/2016 FINDINGS: Evaluation is limited by patient body habitus. The cardiac and mediastinal silhouette is unchanged i n appearance. No focal consolidation, pleural fluid, or pneumothorax apparent. IMPRESSION: No evidence for an acute cardiopulmonary process. If there is persistent clinical concern, consider follow-up PA and lateral views of the chest. POS: [facility]
[2017-11-07 14:46] LABS: #Eosinphils 0.2 thou/uL (0.0-0.7); #Lymphocytes 1.6 thou/uL (1.20-3.40); #Monocytes 0.5 thou/uL (0.11-0.59); #Neutrophils 3.6 thou/uL (1.40-6.50); %Basophils 0.3 % (0.0-1.0); %Lymphocytes 27.5 % (21.0-51.0); %Monocytes 8.7 % (0.0-10.0); %Neutrophils 60.6 % (42.0-75.0); ALT (SGPT) 11 U/L (8-55); AST (SGOT) 20 U/L (5-34); Alkaline Phosphatase 68 U/L (40-150); Anion Gap 15 mmol/L (10-20); BUN (Urea Nitrogen) 27 mg/dL (9.8-20.1); Bilirubin, Total 0.3 mg/dL (0.2-1.2); CK (CPK) 84 U/L (29-168); Calc. Creatinine Clearance 0 mL/min (70-130); Calcium 8.7 mg/dL (7.8-10.44); Carbon Dioxide 22 mmol/L (23-31); Chloride 95 mmol/L (98-107); Estimated GFR-MDRD 38; Globulin 2.9 g/dL (2.4-3.5); Glucose 141 mg/dL (83-110); Hemoglobin 11.7 g/dL (12.0-16.0); Mean Corpuscular HGB CONC 32.5 g/dL (32.0-36.0); Mean Corpuscular Volume 89.2 fl (81.0-99.0); Mean Platelet Volume 8.5 fL (7.4-10.4); Platelet Count 251 thou/uL (130-400); Potassium 5.1 mmol/L (3.5-5.1); Protein, Total 6.9 g/dL (6.0-8.3); RBC Distribution Width 13.1 % (11.5-14.5); Red Blood Cell (RBC) Count 4.02 mill/uL (4.20-5.40); Sodium 127 mmol/L (136-145)
[2017-11-07 14:52] LABS: CKMB 2.9 ng/mL (0-6.6); Troponin I Less than 0.010 ng/mL (< 0.028)
[2017-11-07] MEDS ORDERED: Adacel (T-DAP) 0.5 ML VIAL ONE (17:41)
--- NOTE | 2017-11-07 17:43 | RAD ---
LEFT HUMERUS TWO VIEWS: 11/07/17 HISTORY: 82-year-old female with history of syncope with fall and left arm injury. FINDINGS/IMPRESSION: Two views of the left humerus demonstrates some mild degenerative changes of the shoulder and elbow j oints. No fracture or dislocation. POS: [facility]
--- NOTE | 2017-11-07 17:51 | CT ---
BRAIN CT WITHOUT IV CONTRAST 11/07/17 HISTORY: 82-year-old female with history of syncope with fall. There is some age related atrophy bilaterally. No focal mass or midline shift. No intra or extra-axia l hemorrhage. Sinuses and mastoids are clear. IMPRESSION: Mild atrophy and chronic white matter ischemic change. No mass, bleed or other acute process. POS: [facility]
--- NOTE | 2017-11-07 17:53 | CT ---
CERVICAL SPINE CT SCAN WITHOUT IV CONTRAST: 11/07/17 HISTORY: 82-year-old female with history of syncope and fall. There is heterogeneous bone demineralization. Disc osteophytosis changes noted at C5-C6 with some ass ociated mild to moderate canal, lateral recess, and foraminal stenosis. no acute fracture or facet di slocation. IMPRESSION: No fracture or facet dislocation. Disc osteophytosis at C5-C6. Heterogeneous bone demineralization. POS: [facility]
--- NOTE | 2017-11-09 15:02 | EKG ---
Test Reason : Blood Pressure : / mmHG Vent. Rate : 084 BPM Atrial Rate : 084 BPM P-R Int : 146 ms QRS Dur : 090 ms QT Int : 374 ms P-R-T Axes : 002 -13 042 degrees QTc Int : 441 ms Normal sinus rhythm Low voltage QRS Borderline ECG Confirmed by JUANA MAYA ([id number]), editorial manager ELIDA BAUM ([id number]) on 11/09/2017 3:00:44 PM Referred By: Confirmed By:JUANA MAYA
== END 2017-11-07 18:32 | disposition home or self-care (01) ==
LOC: ERS 13:47
DX: R55 Syncope and collapse (principal); S50.811A Abrasion of right forearm, initial encounter; E11.40 Type 2 diabetes mellitus with diabetic neuropathy, unspecified; E03.9 Hypothyroidism, unspecified; I10 Essential (primary) hypertension; W19.XXXA Unspecified fall, initial encounter; Y93.H2 Activity, gardening and landscaping; F32.9 Major depressive disorder, single episode, unspecified
CPT/HCPCS: 70450; 71045; 72125; 80053; 82550; 82553; 84484; 85025; 90471; 90715; 93005; 94760; 96360

== ENCOUNTER 2018-02-01 15:41 | Emergency (ER) | payer MEDICARE, OTHER ==
--- NOTE | 2018-02-01 17:22 | RAD ---
FRONTAL RADIOGRAPH CHEST FRONTAL UPRIGHT AND SUPINE IMAGING OF ABDOMEN AND PELVIS 02/01/18 COMPARISON: None. HISTORY: Abdominal pain and cramping. FINDINGS: Frontal radiograph chest demonstrates no pneumothorax, pleural fluid, focal consolidation or alveolar edema. There is tortuosity of the descending thoracic aorta. The right hemidiaphragm is elevated. Th ere are postoperative clips noted in the right upper quadrant suggesting prior cholecystectomy. There is significant stool seen throughout the colon. There is no evidence for small bowel obstruction or free intraperitoneal air. Inguinal postoperative clips are noted bilaterally. Vascular stent material is seen within the left hemipelvis. IMPRESSION: Numerous incidental findings. No radiographic evidence of acute cardiopulmonary disease, small bowel obstruction, or free intraperitoneal air. POS: [facility]
== END 2018-02-01 17:06 | disposition home or self-care (01) ==
LOC: ERS 15:41
DX: K59.00 Constipation, unspecified (principal); E03.9 Hypothyroidism, unspecified; I10 Essential (primary) hypertension; E11.40 Type 2 diabetes mellitus with diabetic neuropathy, unspecified; F32.9 Major depressive disorder, single episode, unspecified; Z79.899 Other long term (current) drug therapy; Z79.82 Long term (current) use of aspirin; Z79.84 Long term (current) use of oral hypoglycemic drugs
CPT/HCPCS: 74022

== ENCOUNTER 2018-02-05 18:07 | Emergency (ER) | payer MEDICARE, OTHER ==
[~2018-02-05 18:07] MED LIST changes: +Iopamidol 370 76% 50 ML VIAL FS ONE
[2018-02-05 19:27] LABS: #Eosinphils 0.1 thou/uL (0.0-0.7); #Lymphocytes 1.9 thou/uL (1.20-3.40); #Monocytes 0.5 thou/uL (0.11-0.59); #Neutrophils 5.3 thou/uL (1.40-6.50); %Basophils 0.3 % (0.0-1.0); %Eosinophils 1.9 % (0.0-10.0); %Lymphocytes 23.9 % (21.0-51.0); %Monocytes 6.8 % (0.0-10.0); %Neutrophils 67.1 % (42.0-75.0); Hemoglobin 14.2 g/dL (12.0-16.0); Mean Corpuscular Hemoglobin 29.9 pg (27.0-31.0); Mean Corpuscular Volume 90.5 fL (78.0-98.0); Mean Platelet Volume 8.7 fL (7.4-10.4); Platelet Count 220 thou/uL (130-400); RBC Distribution Width 13.9 % (11.5-14.5); Red Blood Cell (RBC) Count 4.74 mill/uL (4.20-5.40); White Blood Cell (WBC) Count 7.9 thou/uL (4.8-10.8)
[2018-02-05 19:50] LABS: ALT (SGPT) 8 U/L (8-55); AST (SGOT) 15 U/L (5-34); Albumin 4.2 g/dL (3.4-4.8); Alkaline Phosphatase 63 U/L (40-150); Anion Gap 12 mmol/L (10-20); BUN (Urea Nitrogen) 22 mg/dL (9.8-20.1); Bilirubin, Total 0.4 mg/dL (0.2-1.2); Calc. Creatinine Clearance 0 mL/min (70-130); Calcium 9.4 mg/dL (7.8-10.44); Carbon Dioxide 29 mmol/L (23-31); Chloride 100 mmol/L (98-107); Estimated GFR-MDRD 44; Globulin 3.1 g/dL (2.4-3.5); Glucose 119 mg/dL (83-110); Lipase 12 U/L (8-78); Potassium 4.6 mmol/L (3.5-5.1); Protein, Total 7.3 g/dL (6.0-8.3); Sodium 136 mmol/L (136-145)
[2018-02-05] MEDS ORDERED: hydrALAZINE 20 MG/ML VIAL ONE (22:02)
--- NOTE | 2018-02-05 23:44 | CT ---
CT ABDOMEN AND PELVIS WITH CONTRAST: HISTORY: Constipation. COMPARISON: CT from 2017. FINDINGS: The lung bases are clear. No pericardial effusion. Calcified granuloma in the lingula. No dilated loops of large or small bowel. Mild diverticular disease of the sigmoid colon without act hollie current inflammation. Mild ectasia and tortuosity of the abdominal aorta. No hydronephrosis. Multiple calcified granuloma in the spleen. No intrahepatic or extrahepatic biliary dilatation. Prior cholecystectomy. There is chronic herniation of bowel within the right greater sciatic foramen, without evidence of ob struction. A vascular stent is present in the left external iliac artery with distal flow. Sutures are present in the bilateral groin. Pancreatic atrophy is present. Mild osseous demineralization. There is a compression fracture at L1, which is unchanged from the co mparison examination, with near complete height loss, as well as impingement of the spinal canal narr owing approximately 4 mm. IMPRESSION: 1. No acute inflammatory process of the abdomen and pelvis. 2. 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 3. Compression fracture of L1 with complete anterior height loss and loss of the superior endplate a nd inferior endplate with retropulsion and narrowing of the spinal canal to approximately 4 mm. POS: [facility]
== END 2018-02-06 00:18 | disposition home or self-care (01) ==
LOC: ERS 18:07
DX: K59.00 Constipation, unspecified (principal); E03.9 Hypothyroidism, unspecified; I10 Essential (primary) hypertension; E11.40 Type 2 diabetes mellitus with diabetic neuropathy, unspecified; Z79.899 Other long term (current) drug therapy; Z79.84 Long term (current) use of oral hypoglycemic drugs; Z79.82 Long term (current) use of aspirin
CPT/HCPCS: 36415; 74177; 80053; 82274; 83690; 85025; 96374; J0360

== ENCOUNTER 2018-02-09 12:37 | Outpatient (CLI) | payer MEDICARE, OTHER ==
--- NOTE | 2018-02-09 13:18 | RAD ---
CERVICAL SPINE FIVE VIEWS: History: Neck pain. FINDINGS: Vertebral body heights are maintained. Mild disc space height loss at the C3-4 level and severe loss at the C5-6 level. Osteophytosis is also most pronounced at the C5-6 level. Cervicothoracic junction is intact. Minimal anterior spondylolisthesis upon flexion at the C4-5 level with reduction upon exte nsion. No aggressive osseous erosions. Calcification overlies the left carotid bifurcation. IMPRESSION: Cervical spondylosis with mild translational motion at the C4-5 level. Osteoarthrosis. Atherosclerosis. POS: YAMILA
--- NOTE | 2018-02-09 13:35 | RAD ---
LUMBAR SPINE 4 VIEWS: TECHNIQUE: Lateral views were obtained in the neutral, flexion, and extension position with patient standing. FINDINGS: There is burst compression deformity involving the L1 vertebra with mild retropulsion of the posterio r cortex. There is a kyphosis with apex at L1. The T11 and T12 vertebrae appear maintained. The ot her lumbar vertebrae maintain height and alignment. There are degenerative changes with osteophytes. Loss of disk space and degenerative disk changes at L5-S1. No other evidence of listhesis. IMPRESSION: A burst-type compression deformity at the L1 vertebra with vertebra plana-type deformity. Mild retro pulsion of the posterior cortex. CT lumbar spine could better define the osseous abnormalities. POS: [facility]
== END 2018-02-09 12:38 | disposition home or self-care (01) ==
LOC: TBSIIMAG 12:37
PROVIDERS: ATTEND Surgery
DX: M50.30 Other cervical disc degeneration, unspecified cervical region (principal); M54.16 Radiculopathy, lumbar region; M54.6 Pain in thoracic spine; R27.0 Ataxia, unspecified; M47.892 Other spondylosis, cervical region; I70.90 Unspecified atherosclerosis; M19.90 Unspecified osteoarthritis, unspecified site; M43.8X6 Other specified deforming dorsopathies, lumbar region
CPT/HCPCS: 72050; 72110; 72141; 72146; 72148

== ENCOUNTER 2018-05-11 10:03 | Day surgery (SDC) | payer MEDICARE, OTHER ==
[2018-05-10 16:07] VITALS: BMI 26.6
[2018-05-11] MEDS ORDERED: Fentanyl 100 MCG/2 ML VIAL ONE (11:59)
[2018-05-11] MEDS ORDERED: Midazolam HCl 2 mg/2 ml Vial ONE ×2 (11:59→13:09)
--- NOTE | 2018-05-11 15:53 | MRI ---
MRI LUMBAR SPINE NONCONTRAST: DATE: 05/11/18 HISTORY: 82-year-old female with M50.30, M54.16, M54.6, and R27.0. Low back pain, lumbar spinal stenosis, lumb ar spondylosis, and bilateral lumbar radiculopathy. COMPARISON: 12/29/16. FINDINGS: There is a transitional level at the lumbosacral junction. Report of the previous study labeled the level of burst fracture as T12. However, now, with the benefit of a thoracic spine MRI today for reference, the labeling of the level s will be changed. From the long field of view sagittal maintenance manager image for the thoracic spine MRI, it is demonstrated that the burst fracture actually involves T12 rather than L1. Therefore, for the purposes of this report, the level of greatest lordotic angulation will now be richard ignated as L4-5 rather than L5-S1. This patient will be considered to have a sacralized L5. There is no major bone marrow edema. T11-12, T12, and L1-2: Old burst fracture of T12 with severe collapse of the anterior 75% of the florentin tebral body, and significant chronic bony retropulsion causing moderate to severe central spinal yodit l stenosis, with posterior displacement of the spinal cord and flattening of the spinal cord in the a nteroposterior dimension. Mild to moderate bilateral neural foraminal stenosis. Gibbus deformity. L1-2: Mild bilateral degenerative facet changes. Mild bilateral neural foraminal stenosis. Mild cent ral spinal canal stenosis. L2-3: Moderate ligamentum flavum thickening. Mild to moderate bilateral degenerative facet changes. Moderate bilateral neural foraminal stenosis. Moderate to severe central spinal canal stenosis. Diffu se disc bulge. L3-4: Diffuse disc bulge. Moderate ligamentum flavum thickening. Moderate bilateral degenerative fac et changes. Diffuse disc bulge. Moderate to severe central spinal canal stenosis. Moderate bilateral neural foraminal stenosis. L4-5: Moderate to severe disc space narrowing. Mild to moderate bilateral neural foraminal stenosis, right greater than left. Mild central spinal canal stenosis. Mild to moderate bilateral degenerative facet changes. L5-S1: Disc is hypoplastic. No acquired central or neural foraminal stenosis. There is no major interval change overall. Conus medullaris terminates at L1-2. Incidentally, there is high grade neural foraminal stenosis bilaterally at T9-10 and T10-11. IMPRESSION: 1. Transitional level at lumbosacral junction: sacralized L5. The designation of levels has changed, compared to prior study, now with the benefit of a thoracic spine MRI to count levels. See above com ments. 2. Old burst fracture of T12 with severe collapse of the vertebral body and significant osseous retr opulsion, causing high grade chronic central spinal canal stenosis, with chronic flattening of the lo wer spinal cord. 3. High grade central spinal canal stenosis at L3-4 and L2-3. ELIZABETH Weldon POS: [facility]
--- NOTE | 2018-05-11 15:54 | MRI ---
MRI THORACIC SPINE NONCONTRAST: DATE: 05/11/2018. HISTORY: An 82-year-old female with thoracic spine pain. FINDINGS: The vertebral body heights are maintained. There are no major bone marrow signal abnormalities. The thoracic spinal cord is normal in size and ____, with no evidence of syrinx, and no extended cord co mpression. No high-grade central canal stenosis at any level in the thoracic spine proper. There ar e hypertrophic degenerative changes causing at least moderate bilateral neural foraminal stenosis, at T9-10 and T10-11. There is an old severe burst fracture of T12 with significant bony retropulsion, and prominent gibbus angulation. Perivertebral spaces are unremarkable. IMPRESSION: 1. Old burst fracture of T12 with significant bony retropulsion into the spinal canal. See separate report of the lumbar spine MRI. 2. Bilateral neural foraminal stenosis at T9-10 and T10-11. 3. Otherwise, no major pathology of the thoracic spine superior to T12. POS: [facility]
--- NOTE | 2018-05-11 15:59 | MRI ---
MRI CERVICAL SPINE NONCONTRAST: Date: 05/11/18 HISTORY: 82-year-old female with cervicalgia. TECHNIQUE: All images are degraded by patient motion, especially all of the axial images, which are almost nondi agnostic with regard to evaluation of spinal canal caliber and neural foraminal stenosis. The axial i mages were repeated, but the results are the same, severely degraded images. The findings described b elow are based almost entirely on sagittal images. FINDINGS: Cervical spinal cord is normal in size and signal. No high grade facet DJD. There is severe disc spac e narrowing at C5-6 with end plate irregularity and broad, circumferential disc-osteophytic bar compl ex which encroaches upon the anterior aspect of the spinal canal, causing moderate to severe central spinal canal stenosis at that level. There is no high grade central spinal canal stenosis at any othe r level. The degree of neural foraminal stenosis is difficult to assess because of the severely degra ded axial images. There is no Chiari I malformation. No major bone marrow signal abnormality identifi ed. IMPRESSION: 1. Limited study due to severe motion on the axial images, rendering all of the axial sequences nond iagnostic, despite multiple repeated attempts. 2. Moderate to severe degenerative disc disease isolated to the C5-6 level, where there is high grad e central spinal canal stenosis. 3. No abnormality identified at any of the other levels. POS: [facility]
== END 2018-05-11 14:50 | disposition home or self-care (01) ==
LOC: SDC/OP 10:03 → EDSTATUS 12:00 → SDC/OP 14:50
PROVIDERS: ATTEND Surgery
DX: M50.322 Other cervical disc degeneration at C5-C6 level (principal); M48.02 Spinal stenosis, cervical region; M51.34 Other intervertebral disc degeneration, thoracic region; M48.04 Spinal stenosis, thoracic region; M51.16 Intervertebral disc disorders with radiculopathy, lumbar region; M47.26 Other spondylosis with radiculopathy, lumbar region; M48.061 Spinal stenosis, lumbar region without neurogenic claudication; R27.0 Ataxia, unspecified; Z88.0 Allergy status to penicillin; Z88.1 Allergy status to other antibiotic agents; Z91.012 Allergy to eggs; Z91.02 Food additives allergy status; Z91.048 Other nonmedicinal substance allergy status; Z79.899 Other long term (current) drug therapy; Z79.82 Long term (current) use of aspirin; Z79.84 Long term (current) use of oral hypoglycemic drugs
CPT/HCPCS: 72141; 72146; 72148; J2250; J3010

== ENCOUNTER 2018-11-05 08:51 | Emergency (ER) | payer MEDICARE, OTHER ==
--- NOTE | 2018-11-05 11:38 | ULT ---
VENOUS DOPPLER ULTRASOUND OF THE LEFT LOWER EXTREMITY: Date: 11/05/18 HISTORY: Left lower leg pain and edema. TECHNIQUE: Morris scale ultrasound with color flow and spectral Doppler imaging of the deep venous system of the l eft lower extremity is performed. FINDINGS: There is good flow, compression, and augmentation noted in the left common femoral, femoral, deep fem oral, popliteal, posterior tibial, and greater saphenous veins. IMPRESSION: No evidence of deep venous thrombosis in the left lower extremity. POS: [facility]
== END 2018-11-05 11:30 | disposition home or self-care (01) ==
LOC: ERS 08:51
DX: M79.662 Pain in left lower leg (principal); E03.9 Hypothyroidism, unspecified; I10 Essential (primary) hypertension; E11.40 Type 2 diabetes mellitus with diabetic neuropathy, unspecified; F32.9 Major depressive disorder, single episode, unspecified; Z79.899 Other long term (current) drug therapy; Z79.84 Long term (current) use of oral hypoglycemic drugs; Z79.82 Long term (current) use of aspirin

== ENCOUNTER 2019-03-10 21:21 | Emergency (ER) | payer MEDICARE, OTHER ==
[~2019-03-10 21:21] MED LIST changes: -Iopamidol 370 76% 50 ML VIAL FS ONE
[2019-03-10 22:50] LABS: #Basophils 0.1 thou/uL (0.0-0.2); #Eosinphils 0.2 thou/uL (0.0-0.7); #Lymphocytes 1.3 thou/uL (1.20-3.40); #Monocytes 0.6 thou/uL (0.11-0.59); #Neutrophils 6.5 thou/uL (1.40-6.50); %Basophils 0.8 % (0.0-1.0); %Eosinophils 2.5 % (0.0-10.0); %Monocytes 7.3 % (0.0-10.0); %Neutrophils 74.4 % (42.0-75.0); Hemoglobin 13.5 g/dL (12.0-16.0); Mean Corpuscular HGB CONC 32.9 g/dL (32.0-36.0); Mean Corpuscular Hemoglobin 30.2 pg (27.0-31.0); Mean Corpuscular Volume 91.9 fL (78.0-98.0); Mean Platelet Volume 8.4 fL (7.4-10.4); Platelet Count 201 thou/uL (130-400); Red Blood Cell (RBC) Count 4.47 mill/uL (4.20-5.40); White Blood Cell (WBC) Count 8.8 thou/uL (4.8-10.8)
[2019-03-10 23:10] LABS: ALT (SGPT) 12 U/L (8-55); AST (SGOT) 12 U/L (5-34); Albumin 3.8 g/dL (3.4-4.8); Alkaline Phosphatase 84 U/L (40-150); Anion Gap 11 mmol/L (10-20); BUN (Urea Nitrogen) 16 mg/dL (9.8-20.1); Bilirubin, Total 0.3 mg/dL (0.2-1.2); Calc. Creatinine Clearance 0 mL/min (70-130); Calcium 9.1 mg/dL (7.8-10.44); Carbon Dioxide 26 mmol/L (23-31); Chloride 100 mmol/L (98-107); Estimated GFR-MDRD 59; Globulin 2.9 g/dL (2.4-3.5); Glucose 211 mg/dL (83-110); Lipase 27 U/L (8-78); Potassium 4.7 mmol/L (3.5-5.1); Protein, Total 6.7 g/dL (6.0-8.3); Sodium 132 mmol/L (136-145)
[2019-03-10 23:37] LABS: Bilirubin Negative (Negative); Blood, Urine Negative (Negative); Clarity Clear (Clear); Glucose, Urine (Dipstick) Normal (Negative); Leukocyte Negative Leu/uL (Negative); Nitrite Negative (Negative); Protein, Urine (Dipstick) Negative (Neg-Trace); Urobilinogen Normal mg/dL (Less than 2)
[2019-03-11] MEDS ORDERED: traMADol HCl 50 MG TAB ONE (00:32)
--- NOTE | 2019-03-11 07:48 | CT ---
CHEST AND ABDOMEN AND PELVIC CT SCAN WITH IV CONTRAST THORACIC SPINE CT SCAN WITH IV CONTRAST LIMITED LUMBAR SPINE CT SCAN WITH IV CONTRAST LIMITED: HISTORY: Injury, chest pain following a fall. FINDINGS: There is no pneumothorax. No pleural effusion or pericardial effusion. No mediastinal hematoma. Th e aorta appears unremarkable with considerable ectasia and tortuosity. No pericardial effusion. The liver, pancreas, spleen, and adrenal glands are unremarkable. Status post cholecystectomy. Small b ilateral renal cysts. No renal hydronephrosis. No abnormal fluid collection within the abdomen or p endy. No evidence for retroperitoneal hematoma. Moderate fecal material in the colon including a m inimally dilated rectum. Diffuse bony demineralization. IMPRESSION: No significant acute posttraumatic process in the chest, abdomen, or pelvis. Other findings as above . THORACIC SPINE CT SCAN WITH IV CONTRAST LIMITED: FINDINGS: Very severe burst fracture of T12 with severe retropulsion but stable when compared to a 05/11/2018 MR I study. Bony demineralization. Generalized spondylosis. No acute fracture or dislocation. IMPRESSION: Severe old burst fracture of T12 with marked retropulsion but stable. No acute fracture. LUMBAR SPINE CT SCAN WITH IV CONTRAST LIMITED: FINDINGS/IMPRESSION: Bony demineralization. No acute fracture or dislocation. POS: [facility]
== END 2019-03-11 00:51 | disposition home or self-care (01) ==
LOC: ERS 21:21
DX: S20.211A Contusion of right front wall of thorax, initial encounter (principal); E03.9 Hypothyroidism, unspecified; E11.40 Type 2 diabetes mellitus with diabetic neuropathy, unspecified; I10 Essential (primary) hypertension; Z79.84 Long term (current) use of oral hypoglycemic drugs; Z79.899 Other long term (current) drug therapy; W19.XXXA Unspecified fall, initial encounter
CPT/HCPCS: 36415; 51701; 71260; 74177; 80053; 81003; 83690; 85025; 93005; A4353; Q9966

== ENCOUNTER 2019-03-16 16:02 | Observation (INO) | payer MEDICARE, OTHER ==
--- NOTE | 2019-03-16 17:27 | RAD ---
XR Chest 1 View Portable History: Altered mental status Comparison: Radiograph 2018 Findings: Heart size mildly enlarged. There is tortuosity of the thoracic aorta. No pneumothorax. No acute osseous abnormality. Impression: Similar examination of the chest. No acute intrathoracic abnormality.
[2019-03-16 17:33] LABS: #Eosinphils 0.1 thou/uL (0.0-0.7); #Lymphocytes 1.1 thou/uL (1.20-3.40); #Monocytes 0.6 thou/uL (0.11-0.59); #Neutrophils 8.4 thou/uL (1.40-6.50); %Basophils 0.3 % (0.0-1.0); %Lymphocytes 10.7 % (21.0-51.0); %Monocytes 5.5 % (0.0-10.0); %Neutrophils 82.5 % (42.0-75.0); Hemoglobin 15.2 g/dL (12.0-16.0); Mean Corpuscular HGB CONC 33.4 g/dL (32.0-36.0); Mean Corpuscular Hemoglobin 30.7 pg (27.0-31.0); Mean Platelet Volume 8.7 fL (7.4-10.4); Platelet Count 267 thou/uL (130-400); RBC Distribution Width 13.4 % (11.5-14.5); Red Blood Cell (RBC) Count 4.97 mill/uL (4.20-5.40); White Blood Cell (WBC) Count 10.1 thou/uL (4.8-10.8)
--- NOTE | 2019-03-16 17:53 | CT ---
CT Brain WO Con History: Altered mental status Comparison: CT brain 2018 Findings: Mild atrophy. No acute hemorrhage or infarct. No midline shift or mass effect. Calvarium is intact. Paranasal sinuses and mastoids are clear. Moderate chronic microvascular ischemi c changes. Impression: Chronic findings. No acute intracranial abnormality.
[2019-03-16 17:55] LABS: ALT (SGPT) 18 U/L (8-55); AST (SGOT) 18 U/L (5-34); Albumin 4.4 g/dL (3.4-4.8); Alkaline Phosphatase 75 U/L (40-150); Anion Gap 15 mmol/L (10-20); BUN (Urea Nitrogen) 26 mg/dL (9.8-20.1); Bilirubin, Total 0.5 mg/dL (0.2-1.2); CK (CPK) 70 U/L (29-168); Calc. Creatinine Clearance 0 mL/min (70-130); Calcium 9.6 mg/dL (7.8-10.44); Carbon Dioxide 26 mmol/L (23-31); Chloride 101 mmol/L (98-107); Estimated GFR-MDRD 54; Globulin 3.3 g/dL (2.4-3.5); Glucose 181 mg/dL (83-110); Lipase 10 U/L (8-78); Potassium 4.4 mmol/L (3.5-5.1); Protein, Total 7.7 g/dL (6.0-8.3); Sodium 138 mmol/L (136-145)
[2019-03-16] MEDS ORDERED: Ondansetron ODT 4 MG TAB SL PRN (19:44)
[2019-03-16] MEDS ORDERED: Ondansetron PF 4 MG/2 ML Vial IVP PRN (19:44)
[2019-03-16 20:10] VITALS: BMI 29.0
[2019-03-16] MEDS: Sodium Chloride 0.9% 1,000 ML IV SCH (20:52)
[2019-03-16] MEDS ORDERED: hydrALAZINE 20 MG/ML VIAL SLOW IVP PRN (21:01)
[2019-03-16] MEDS ORDERED: hydrALAZINE 20 MG/ML VIAL SLOW IVP SCH (21:30)
[2019-03-16] MEDS ORDERED: Polyethylene Glycol 3350 17 GM Packet PO PRN (22:19)
--- NOTE | 2019-03-17 01:18 | HP ---
CHIEF COMPLAINT: Generalized weakness. HISTORY OF PRESENT ILLNESS: Ms. Jeong is an 83-year-old female with past medical history of hypertension, hyperlipidemia, hypothyroidism, diabetes mellitus type 2, who had presented to [facility] earlier today after she has been experiencing worsening generalized weakness and some general malaise over the last week. She states that she had fallen roughly 2 weeks ago and had bruised her ribs. She states since then when she would stand up too quickly, she would feel dizzy and lightheaded. She states that this was off and on over the last 2 weeks. She states that she had fallen again on Monday and was seen in the ED, a CT chest, abdomen, and pelvis was performed and showed a very severe burst fracture of T12 with severe retropulsion, but stable when compared to previous MRI in 2018 with no acute fracture noted and she was later discharged home. She states that due to her not feeling well, she has not taken her home medications in a week and she has not had a bowel movement in about 5 days and states that she has not had any appetite to eat or drink. She had denied any fever, chills, any headache, blurred vision, chest pain, palpitations, shortness of breath, or abdominal pain. Her initial workup included a portable chest x-ray, which showed no acute findings. CT brain without contrast was also performed and showed chronic findings with no acute intracranial abnormality demonstrated. Her labs indicated TSH elevated at 11.65 with a load free T4 of 0.51, otherwise unremarkable, troponin was negative. BNP was also negative and an ammonia level was normal. She states that her PCP is Dr. Gotti. REVIEW OF SYSTEMS: All other systems reviewed and found to be negative unless mentioned in the HPI. PAST MEDICAL HISTORY: Hypertension, hyperlipidemia, diabetes mellitus type 2, hypothyroidism. PAST SURGICAL HISTORY: Hysterectomy, appendectomy, thyroidectomy, tonsillectomy, stent in right and left groin, left iliac artery stent. PSYCHIATRIC HISTORY: Includes depression. SOCIAL HISTORY: The patient denies alcohol, tobacco, or illicit drug use. KNOWN ALLERGIES: Adhesive tape, azithromycin, chocolate, egg, and penicillin. CURRENT HOME MEDICATIONS: 1. Aspirin 81 mg daily. 2. Amlodipine 10 mg oral daily. 3. Acetaminophen with codeine 1 tablet oral q.6 hours p.r.n. pain. 4. Pregabalin 75 mg p.o. b.i.d. 5. Zofran 4 mg p.o. q.6 hours as needed for nausea. 6. Atenolol 25 mg p.o. daily. 7. Duloxetine 30 mg oral b.i.d. 8. Levothyroxine 150 mcg p.o. daily. 9. Lisinopril 30 mg p.o. b.i.d. 10. Metformin 500 mg p.o. daily. PHYSICAL EXAMINATION: VITAL SIGNS: BP 157/77, pulse 70, respirations 15, temperature 98.1 degrees Fahrenheit, O2 saturations 98% on room air. GENERAL: The patient is awake, alert, and oriented x3. She is currently lying comfortably in bed and in no acute distress. HEENT: Atraumatic, normocephalic. Edentulous noted. NECK: Soft, supple. Trachea midline. CARDIOVASCULAR: Positive S1 and S2. Regular rate and rhythm. No murmur auscultated. RESPIRATORY: Clear to auscultation bilaterally. No wheezes, rales, or rhonchi. ABDOMEN: Soft, nontender. Bowel sounds present. MUSCULOSKELETAL: Strength is at baseline. Moves all extremities equal. No edema noted. NEUROLOGIC: Cranial nerves 2 through 12 grossly intact. No focal deficits noted. Speech intact and normal. Gait not assessed. SKIN: Warm, dry. Bandage to posterior right knee noted. PSYCHIATRIC: Good mood and affect. LABORATORY DATA: WBC 10.1, RBC 4.97, hemoglobin 15.2, platelet 267. Sodium 138, potassium 4.4, anion gap 15, BUN 26, creatinine 0.99, estimated GFR 54, glucose 181, ammonia 16, CK 70, troponin less than 0.010 x2. Lipase 10. TSH 11.6540, free T4 0.51. DIAGNOSTIC IMAGING: Portable chest x-ray shows heart size is mildly enlarged and there is tortuosity of the thoracic artery. No pneumothorax. No acute osseous abnormality noted. CT brain without contrast showed no acute hemorrhage or infarct. No midline shift, or mass effect noted. ASSESSMENT AND PLAN: 1. Near syncope, this could likely be secondary to orthostatic hypotension. Therefore, orthostatic vital signs will be checked. She is currently asymptomatic at this time. Her TSH is elevated and low free T4 due to her not taking her home medications in about a week, which also could be a cause. 2. Hypothyroidism. Restart home dose of levothyroxine 150 mcg daily. 3. Hypertension. Monitor blood pressure and other vital signs closely. Resume home medications. 4. Generalized weakness. Start physical therapy and occupational therapy. 5. Diabetes mellitus type 2. Continue frequent Accu-Cheks. Restart home metformin and add insulin sliding scale. 6. Deep venous thrombosis and gastrointestinal prophylaxis. 7. Code status, full code. 8. Surrogate decision maker is her brother, Dominik Carrasco. DISPOSITION: Pending further workup and clinical findings. Job ID: [id number]
[2019-03-17] MEDS: Acetaminophen/Codeine 30-300mg Tablet PO PRN ×2 (02:15→14:35)
[2019-03-17] MEDS ORDERED: HumaLOG 300 UNITS/3 ML VIAL SC PRN ×2 (02:21)
[2019-03-17] MEDS ORDERED: Dextrose 5% in Water 1,000 ML IV PRN (02:21)
[2019-03-17] MEDS ORDERED: Dextrose 50% Abboject 50 ML SYRINGE SLOW IVP PRN (02:21)
[2019-03-17] MEDS: Levothyroxine 150 MCG TAB PO SCH (05:36)
[2019-03-17] MEDS: Sodium Chloride 0.9% 1,000 ML IV SCH (06:49)
[2019-03-17] MEDS ORDERED: Senokot S 8.6-50 MG TAB PO SCH ×2 (09:00→12:00)
[2019-03-17] MEDS: Atenolol 25 MG TAB PO SCH (09:44)
[2019-03-17] MEDS: Aspirin Chewable 81 MG TAB PO SCH (09:45)
[2019-03-17] MEDS: Lisinopril 20 MG TAB PO SCH ×2 (09:45→20:47)
[2019-03-17] MEDS: metFORMIN XR 500 MG TAB PO SCH (09:46)
[2019-03-17] MEDS: Amlodipine 10 MG TAB PO SCH (09:46)
[2019-03-17] MEDS: DULoxetine 30 MG CAP PO SCH ×2 (09:46→20:47)
[2019-03-17] MEDS ORDERED: Magnesium Citrate 300 ML BOT PO SCH (11:45)
[2019-03-17] MEDS ORDERED: Ondansetron PF 4 MG/2 ML Vial SLOW IVP PRN (14:10)
--- NOTE | 2019-03-17 20:19 | PDOC.HOSPP ---
- Subjective Encounter Date: 03/17/19 Encounter Time: 10:00 Subjective: f/u for general weakness and recent fall. Work up showing poorly controlled hypothyroidism. Pt states she lives in assisted-living at [facility] and receives assistance with groceries/errands, does not drive. No CP, unilateral weakness. - Objective Vital Signs & Weight: Vital Signs (12 hours) Temp Pulse Resp BP BP BP BP 03/17/19 16:40 97.8 F 63 16 164/73 H 03/17/19 11:42 97.4 F L 64 18 167/74 H 157/79 H 159/81 H 03/17/19 08:19 97.6 F 72 18 143/76 H Pulse Ox 03/17/19 16:40 96 03/17/19 11:42 96 03/17/19 08:19 97 Weight Weight 174 lb 8 oz I&O: 03/16/19 03/17/19 03/18/19 06:59 06:59 06:59 Intake Total 1248 970 Output Total 760 Balance 488 970 Result Diagrams: 03/16/19 17:24 03/16/19 17:24 Additional Labs: Accuchecks 03/17/19 03/17/19 03/17/19 17:10 10:55 05:42 POC Glucose 177 H 177 H 154 H Laboratory Tests 10/11/18 10/26/18 03/16/19 12:08 10:50 17:24 Ammonia Troponin I 0.024 TSH 3rd Generation 3.4312 0.3164 L Free T4 1.46 03/16/19 03/16/19 03/16/19 17:24 17:24 19:55 Ammonia 16 L Troponin I Less than 0.010 TSH 3rd Generation 11.6540 H Free T4 03/16/19 23:05 Ammonia Troponin I TSH 3rd Generation Free T4 0.51 L Radiology Reviewed by me: Yes (PCXR - no acute changes; CT brain - no acute changes) EKG Reviewed by me: Yes (Tele - SR) ROS - Medication Medications: Active Medications Generic Name Dose Route Start Last Admin Trade Name Freq PRN Reason Stop Dose Admin Acetaminophen/Codeine Phosphate 1 tab 03/16/19 23:49 03/17/19 14:35 Tylenol #3 PO 1 tab Q6HR PRN Administration Pain Amlodipine Besylate 10 mg 03/17/19 09:00 03/17/19 09:46 Norvasc PO 10 mg DAILY ANGIE Administration Aspirin 81 mg 03/17/19 09:00 03/17/19 09:45 Aspirin Chewable PO 81 mg QAM ANGIE Administration Atenolol 25 mg 03/17/19 09:00 03/17/19 09:44 Tenormin PO 25 mg DAILY ANGIE Administration Duloxetine HCl 30 mg 03/17/19 09:00 03/17/19 09:46 Cymbalta PO 30 mg BID ANGIE Administration Hydralazine HCl 10 mg 03/16/19 21:01 03/17/19 04:19 Apresoline SLOW IVP 10 mg Q4H PRN Administration Hypertension Levothyroxine Sodium 150 mcg 03/17/19 06:00 03/17/19 05:36 Synthroid PO 150 mcg 0600 ANGIE Administration Lisinopril 30 mg 03/17/19 09:00 03/17/19 09:45 Zestril PO 30 mg BID ANGIE Administration Metformin HCl 500 mg 03/17/19 08:00 03/17/19 09:46 Glucophage Xr PO 500 mg QAM-WM ANGIE Administration Ondansetron HCl 4 mg 03/17/19 14:10 03/17/19 14:29 Zofran SLOW IVP 4 mg Q6H PRN Administration Nausea/Vomiting Polyethylene Glycol 17 gm 03/16/19 22:19 03/16/19 23:53 Miralax PO 17 gm DAILYPRN PRN Administration Constipation - Exam NAD, awake alert Eye: PERRL, anicteric sclera ENT: normocephalic atraumatic, no oropharyngeal lesions Neck: supple, symmetric, no JVD, no thyromegaly, no lymphadenopathy Heart: RRR, no murmur, no gallops, no rubs, normal peripheral pulses Respiratory: CTAB, no wheezes, no rales, no ronchi, normal chest expansion Gastrointestinal: soft, non-tender, non-distended, normal bowel sounds, no palpable masses Extremities: no cyanosis, no clubbing, no edema Skin: normal turgor, no lesions Neurological: CN's grossly intact, no focal deficits, no new deficit Musculoskeletal: normal tone, normal strength Psychiatric: normal affect, A&O x 3 Hosp A/P (1) Hypothyroidism Code(s): E03.9 - HYPOTHYROIDISM, UNSPECIFIED Status: Acute Plan: Likely due to non-compliance with Synthroid, resume Synthroid 150mcg daily (2) Generalized weakness Code(s): R53.1 - WEAKNESS Status: Acute Plan: Likely a component of #1, PT/OT evaluation for functional assessment (3) Diabetes mellitus type 2 in nonobese Code(s): E11.9 - TYPE 2 DIABETES MELLITUS WITHOUT COMPLICATIONS Status: Chronic Plan: ISS, Metformin, serial accuchecks, ADA (4) Near syncope Status: Acute Plan: Likely multifactorial, no orthostasis, PT evaluation, fall risk precautions, may need SNF/HH with PT - Plan 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
[2019-03-17] MEDS: Senokot S 8.6-50 MG TAB PO SCH (20:49)
[2019-03-17] MEDS: Pregabalin 75 MG CAP PO SCH (20:49)
[2019-03-18] MEDS: Levothyroxine 150 MCG TAB PO SCH (05:28)
[2019-03-18] MEDS: Acetaminophen/Codeine 30-300mg Tablet PO PRN (05:47)
[2019-03-18 05:49] LABS: Lactic Acid 0.7 mmol/L (0.5-2.2)
[2019-03-18] MEDS: Atenolol 25 MG TAB PO SCH (08:28)
[2019-03-18] MEDS: Lisinopril 20 MG TAB PO SCH (08:28)
[2019-03-18] MEDS: DULoxetine 30 MG CAP PO SCH (08:28)
[2019-03-18] MEDS: Amlodipine 10 MG TAB PO SCH (08:28)
[2019-03-18] MEDS: Aspirin Chewable 81 MG TAB PO SCH (08:29)
[2019-03-18] MEDS: metFORMIN XR 500 MG TAB PO SCH (08:29)
[2019-03-18] MEDS: Pregabalin 75 MG CAP PO SCH (08:29)
[2019-03-18] MEDS: Senokot S 8.6-50 MG TAB PO SCH (08:29)
[2019-03-18] MEDS ORDERED: Fleet Enema 133 ML BOT PR SCH (10:00)
[2019-03-18 15:03] VITALS: BP 114/63; TEMP 98
--- NOTE | 2019-03-18 22:07 | DIS ---
DATE OF ADMISSION: 03/16/2019 DATE OF DISCHARGE: 03/18/2019 DISCHARGE DIAGNOSES: 1. Hypothyroidism, poor control. 2. Generalized weakness, multifactorial. 3. Diabetes mellitus type 2. 4. Near syncope, multifactorial. CONSULTATIONS: None. PERTINENT LABORATORY AND X-RAY FINDINGS: Troponin I negative x3. BNP 56. TSH 11.65, free T4 0.51. Portable chest x-ray dated 03/16/2019, showed no acute cardiopulmonary process. CT of the brain without contrast dated 03/16/2019, showed chronic changes without acute process. HOSPITAL COURSE: The patient was initially observed after presenting with generalized weakness and near syncopal episode. The patient underwent CT imaging of the brain showing no acute process and metabolic screening revealed evidence of poorly controlled hypothyroidism. The patient was resumed on levothyroxine 150 mcg daily and evaluated by Physical Therapy Service. The patient was ambulatory without assistance or difficulty and remained clinically stable throughout the hospital course. The patient was treated for constipation with successful bowel movement prior to discharge with Fleet enema. Overall, the patient did remain clinically stable under observation. I have examined the patient at time of discharge and discussed followup instructions. The patient verbalized understanding and in agreement, ready for discharge on 03/18/2019. DISCHARGE MEDICATIONS: 1. Acetaminophen with codeine 300 mg/30 mg 1 tablet p.o. q.6 hours p.r.n. 2. Amlodipine 10 mg p.o. daily. 3. Atenolol 25 mg p.o. daily. 4. Duloxetine 30 mg p.o. b.i.d. 5. Levothyroxine 150 mcg p.o. daily. 6. Lisinopril 30 mg p.o. b.i.d. 7. Metformin extended release 500 mg p.o. daily. 8. Zofran 4 mg p.o. q.6 hours p.r.n. 9. Lyrica 75 mg p.o. b.i.d. 10. Vitamin B12/folic acid one tablet p.o. daily. 11. Enteric-coated aspirin 81 mg p.o. daily. FOLLOWUP: The patient will follow up with her primary care provider, Dr. Adalberto Gotti within 7 days of discharge. CONDITION ON DISCHARGE: Stable. ACTIVITY: Ad-benedict. DIET: Heart healthy. CODE STATUS: Full. DISPOSITION: Home on 03/18/2019. Job ID: [id number]
--- NOTE | 2019-03-23 10:09 | EKG ---
Test Reason : Blood Pressure : / mmHG Vent. Rate : 065 BPM Atrial Rate : 065 BPM P-R Int : 122 ms QRS Dur : 088 ms QT Int : 434 ms P-R-T Axes : 053 -29 024 degrees QTc Int : 451 ms Normal sinus rhythm Normal ECG Confirmed by OUMOU SALDANA, MICHELLE ([id number]), fashion editor ELIDA BAUM ([id number]) on 03/23/2019 10:08:41 AM Referred By: Confirmed By:MICHELLE COELLO MD
== END 2019-03-18 15:20 | disposition home or self-care (01) ==
LOC: ERS 16:02 → 2NO 18:15
PROVIDERS: ADMIT Hospitalist; ATTEND Hospitalist
DX: R53.1 Weakness (principal); R55 Syncope and collapse; E11.9 Type 2 diabetes mellitus without complications; E03.9 Hypothyroidism, unspecified; I10 Essential (primary) hypertension; E78.5 Hyperlipidemia, unspecified; F32.9 Major depressive disorder, single episode, unspecified; Z91.048 Other nonmedicinal substance allergy status; Z88.1 Allergy status to other antibiotic agents; Z91.018 Allergy to other foods; Z91.012 Allergy to eggs; Z88.0 Allergy status to penicillin; Z79.84 Long term (current) use of oral hypoglycemic drugs; Z79.82 Long term (current) use of aspirin; Z79.899 Other long term (current) drug therapy
CPT/HCPCS: 70450; 71045; 82140; 82550; 82962 ×2; 83605; 83690; 83880; 84439; 84484 ×2; 93005; 96361 ×3; 96374; 96375; 96376; 97139 ×4; 99285; G0378 ×4; 36415; 36416; 80053; 84443; 85025; 96360; J0360; J2405

== ENCOUNTER 2019-07-16 05:35 | Emergency (ER) | payer MEDICARE, OTHER ==
[2019-07-16] MEDS ORDERED: Acetaminophen 500 MG TAB ONE (06:11)
[2019-07-16 06:15] LABS: #Eosinphils 0.2 thou/uL (0.0-0.7); #Lymphocytes 1.5 thou/uL (1.20-3.40); #Monocytes 0.9 thou/uL (0.11-0.59); #Neutrophils 8.2 thou/uL (1.40-6.50); %Basophils 0.4 % (0.0-1.0); %Eosinophils 1.7 % (0.0-10.0); %Lymphocytes 14.2 % (21.0-51.0); %Monocytes 8.4 % (0.0-10.0); %Neutrophils 75.3 % (42.0-75.0); Mean Corpuscular HGB CONC 32.9 g/dL (32.0-36.0); Mean Corpuscular Hemoglobin 29.2 pg (27.0-31.0); Mean Platelet Volume 8.4 fL (7.4-10.4); Platelet Count 234 thou/uL (130-400); RBC Distribution Width 12.3 % (11.5-14.5); Red Blood Cell (RBC) Count 4.45 mill/uL (4.20-5.40); White Blood Cell (WBC) Count 10.9 thou/uL (4.8-10.8)
[2019-07-16 07:03] LABS: ALT (SGPT) 10 U/L (8-55); AST (SGOT) 14 U/L (5-34); Albumin 4.1 g/dL (3.4-4.8); Alkaline Phosphatase 84 U/L (40-110); Anion Gap 11 mmol/L (10-20); BUN (Urea Nitrogen) 19 mg/dL (9.8-20.1); Bilirubin, Total 0.5 mg/dL (0.2-1.2); Calc. Creatinine Clearance 0 mL/min (70-130); Calcium 9.3 mg/dL (7.8-10.44); Carbon Dioxide 28 mmol/L (23-31); Chloride 94 mmol/L (98-107); Estimated GFR-MDRD 59; Globulin 2.9 g/dL (2.4-3.5); Glucose 142 mg/dL (83-110); Potassium 5.1 mmol/L (3.5-5.1); Sodium 128 mmol/L (136-145)
[2019-07-16 07:13] LABS: Bilirubin Negative (Negative); Blood, Urine Negative (Negative); Clarity Clear (Clear); Glucose, Urine (Dipstick) Normal (Negative); Leukocyte Negative Leu/uL (Negative); Nitrite Negative (Negative); Protein, Urine (Dipstick) Negative (Neg-Trace); Urobilinogen Normal mg/dL (Less than 2)
--- NOTE | 2019-07-16 07:51 | RAD ---
XR Finger(s) Lt Min 2 View HISTORY: Injury, left little finger pain FINDINGS: There is a small chip fracture involving the dorsal aspect of the base of the distal phalanx without significant displacement. The fracture line extends into the articular surface.
--- NOTE | 2019-07-16 08:10 | RAD ---
RADIOGRAPH CHEST AND LEFT RIBS 4 VIEWS: Date: 07/16/19 Time: 0714 hours HISTORY: 83-year-old female with acute, traumatic left rib pain after fall. FINDINGS: There are old, mildly angulated, healed fracture deformities of the anterolateral aspects of the left 5th, 6th, and 7th ribs. No definite acute left rib fracture is identified, although the osteopenia c ould obscure a nondisplaced or minimally displaced acute fracture. No pneumothorax. No consolidation or cardiomegaly. Tortuosity of thoracic aorta. Lateral costophrenic angles are sharp. IMPRESSION: 1. Old left rib fractures. 2. No acute rib fracture identified. 3. Ectasia and tortuosity of the thoracic aorta. POS: [facility]
--- NOTE | 2019-07-16 09:27 | CT ---
HEAD CT WITHOUT CONTRAST: Date: 07/16/19 HISTORY: Syncope. Fall. COMPARISON: 03/16/19. FINDINGS: Despite repeat imaging, there is limited evaluation due to motion degradation. No parenchymal hemorrhage or extra-axial hematoma No midline shift. Basilar cisterns are patent. Brai n volume is age-appropriate. Cortical correa-white matter differentiation is grossly preserved. No evid ence of hydrocephalus. White matter hypodensities due to chronic small vessel ischemic change. Intact calvarium. Adequate aeration of the sinuses and mastoid air cells. IMPRESSION: Limited evaluation due to motion degradation, despite repeat imaging. No intracranial post-traumatic sequelae. POS: [facility]
== END 2019-07-16 09:08 | disposition home or self-care (01) ==
LOC: ERS 05:35
DX: S09.90XA Unspecified injury of head, initial encounter (principal); E11.9 Type 2 diabetes mellitus without complications; E03.9 Hypothyroidism, unspecified; I10 Essential (primary) hypertension; F32.9 Major depressive disorder, single episode, unspecified; Z79.84 Long term (current) use of oral hypoglycemic drugs; Z79.899 Other long term (current) drug therapy; W19.XXXA Unspecified fall, initial encounter
CPT/HCPCS: 70450; 80053; 81003; 83880; 84484; 85025; 93005

== ENCOUNTER 2019-10-01 14:28 | Outpatient (CLI) | payer MEDICARE, OTHER ==
--- NOTE | 2019-10-01 14:51 | RAD ---
XR Hip Rt 2-3 View INDICATION: Right hip pain COMPARISON: None FINDINGS: Bones: No acute osseous abnormality. Bone mineralization appears within normal limits. Hip joint: There is mild right hip osteoarthrosis. SI joints and symphysis pubis: Radiographically normal. Intrapelvic contents: Visualized bowel gas pattern is within normal limits. Surrounding soft tissues: There are numerous vascular clips within the anterior medial soft tissues o f the right hip. IMPRESSION: 1. No acute osseous abnormality.
== END 2019-10-01 14:29 | disposition home or self-care (01) ==
LOC: RAD 14:28
PROVIDERS: ATTEND Family Medicine
DX: M25.551 Pain in right hip (principal)

== ENCOUNTER 2020-03-02 17:48 | Emergency (ER) | payer MEDICARE, OTHER ==
--- NOTE | 2020-03-02 19:37 | CT ---
Exam: Head CT without contrast HISTORY: Fall. Pain. Injury. COMPARISON: 07/16/2019 FINDINGS: Hemorrhage: No intraparenchymal hemorrhage or extra-axial hematoma. Brain parenchyma: Cortical correa-white matter differentiation is preserved. No mass effect or midline shift. Basilar cisterns are patent.Stable chronic small vessel ischemic changes. Ventricular system: Ventricles and sulci are patent and symmetric. Calvarium: Intact. Sinuses and mastoid air cells: Adequate aeration. IMPRESSION: 1. No intracranial post traumatic sequelae
--- NOTE | 2020-03-02 19:41 | CT ---
Exam: CT cervical spine without contrast HISTORY: Trauma. Pain. COMPARISON: None FINDINGS: No craniocervical dissociation. Appropriate alignment of the lateral masses of C1 and C2. Intact odon toid process Appropriate alignment of the facets. Straightening of normal cervical lordosis may be due to patient position, muscle spasm or cervical collar. Soft tissue neck structures: No mass, lymphadenopathy or hematoma. No prevertebral soft tissue swelli ng. Upper mediastinum and lung apices: Unremarkable Central spinal canal: Stable mild to moderate central canal stenosis at C5-C6. Remaining central spin al canal and neural foramina are grossly patent. Technique limits evaluation. Vertebral bodies: Cervical spine vertebral body height is maintained. No fracture. IMPRESSION: 1. No cervical spine fracture 2. Stable degenerative changes at C5-6. 3. Straightening of cervical lordosis, similar to the previous examination. Findings may be due to pa tient position, muscle spasm or cervical collar. Current study does not assess for ligamentous injury.
--- NOTE | 2020-03-02 19:58 | RAD ---
Exam: One view pelvis HISTORY: Pain. Injury. Comparison none FINDINGS: Diffuse bone demineralization. Visualized sacral ala are preserved Symmetric sacroiliac joints Intact bony pelvis Intact obturator rings Symmetric hip joint spaces. Contour of bilateral femoral heads are maintained. No obvious hip fractur e Multiple surgical clips and vascular stent is noted. IMPRESSION: No fracture.
--- NOTE | 2020-03-02 19:59 | RAD ---
Exam:3 views left elbow HISTORY: Trauma. Fall. Pain. COMPARISON: None FINDINGS: Preserved joint spaces. No joint effusion. No fracture or malalignment. IMPRESSION: No fracture.
--- NOTE | 2020-03-02 20:01 | RAD ---
Exam:2 views left hip HISTORY: Fall. Pain. Injury. COMPARISON: None FINDINGS: Contour of the femoral head is maintained. No fracture. Hip joint spaces preserved. IMPRESSION: No fracture.
--- NOTE | 2020-03-02 20:01 | RAD ---
Exam:3 views left shoulder HISTORY: Trauma. Fall. Pain. COMPARISON: None FINDINGS: Glenohumeral joint space is preserved. No fracture or dislocation. Acromioclavicular and coracoclavicular distance is maintained. Mild degenerative change in the AC liegha nt. Visualized left ribs and lung parenchyma do not demonstrate posttraumatic change. IMPRESSION: No fracture or dislocation.
== END 2020-03-02 20:21 | disposition home or self-care (01) ==
LOC: ERS 17:48
DX: S70.02XA Contusion of left hip, initial encounter (principal); S50.02XA Contusion of left elbow, initial encounter; S40.012A Contusion of left shoulder, initial encounter; E03.9 Hypothyroidism, unspecified; I10 Essential (primary) hypertension; E11.40 Type 2 diabetes mellitus with diabetic neuropathy, unspecified; Z79.899 Other long term (current) drug therapy; W18.30XA Fall on same level, unspecified, initial encounter
CPT/HCPCS: 70450; 72125; 72170

== ENCOUNTER 2020-04-21 05:46 | Day surgery (SDC) | payer MEDICARE, OTHER ==
[2020-04-20 10:26] VITALS: BMI 28.8
[2020-04-21] MEDS ORDERED: Fentanyl 100 MCG/2 ML VIAL ONE ×2 (06:29→06:50)
[2020-04-21] MEDS ORDERED: Midazolam HCl 2 mg/2 ml Vial ONE (06:29)
[2020-04-21] MEDS ORDERED: Sodium Chloride 0.9% 10 ML ONE (06:34)
[2020-04-21] MEDS ORDERED: Betamet Acet/Betamet Na Ph 30 MG/5 ML VIAL ONE (06:34)
[2020-04-21] MEDS ORDERED: Bupivacaine PF 0.5% 30 ML VIAL ONE (06:34)
[2020-04-21] MEDS ORDERED: Bacitracin Zinc Ointment 30 gm TUBE ONE (06:34)
[2020-04-21] MEDS ORDERED: Clindamycin/D5W 600 mg/50 ml Premix Bag ONE (07:22)
[2020-04-21] MEDS ORDERED: Ketorolac Tromethamine 30 MG/ML VIAL ONE (09:33)
[2020-04-21] MEDS ORDERED: PROPOFOL 200 MG/20 ML VIAL ONE (09:33)
[2020-04-21] MEDS ORDERED: Lidocaine 1% PF 5 ML VIAL ONE (09:33)
[2020-04-21] MEDS ORDERED: Ondansetron PF 4 MG/2 ML Vial ONE (09:33)
[2020-04-21] MEDS ORDERED: Dexamethasone 20 MG/5 ML VIAL ONE (09:33)
[2020-04-21] MEDS ORDERED: PHENYLEPHRINE-NS 100 MCG/ML 10 ML SYRINGE ONE (09:33)
[2020-04-21] MEDS ORDERED: EPHEDRINE 25 MG/5 ML SYRINGE ONE (09:33)
[2020-04-21] MEDS ORDERED: HYDROcodone/Acetaminophen 5/325 mg Tablet ONE (10:25)
--- NOTE | 2020-04-21 17:19 | RAD ---
Intraoperative imaging of the left fifth finger: 04/21/2020 COMPARISON: None HISTORY: ORIF FINDINGS: 5 intraoperative images demonstrate placement of a percutaneous pin extending through the f ifth distal phalanx and crossing the fifth distal interphalangeal joint. IMPRESSION: Intraoperative imaging as above.
--- NOTE | 2020-04-22 10:41 | OP ---
DATE OF PROCEDURE: 04/21/2020 PREOPERATIVE DIAGNOSIS: 1. Left small finger extensor tendon laceration, extensor tendon strain beyond tensile strength to extend the joint. 2. Left small finger distal interphalangeal joint extension loss/contracture of the palmar plate. POSTOPERATIVE DIAGNOSES: 1. Left small finger extensor tendon laceration, extensor tendons strain beyond tensile strength to extend the joint. 2. Left small finger distal interphalangeal joint extension loss/contracture of the palmar plate. 3. A 1.5 mm area of redundant tendon, which was stressed and thin just over the joint and the head of the chondral surface of the middle phalanx. PROCEDURES PERFORMED: 1. C-arm supervision. 2. Left small finger arthrotomy with distal interphalangeal joint and volar plate release through the joint. 3. Left small finger zone 1 extensor tendon repair with tenotomy and distal interphalangeal joint pinning. TOURNIQUET TIME: 23 minutes. ESTIMATED BLOOD LOSS: 10 mL. FINDINGS: Stretched extensor mechanism beyond the capacity for tendon to exert tensile strength for extension. No PIP joint findings to include no swan-neck. DESCRIPTION OF PROCEDURE: After successful general endotracheal anesthesia, the limb was prepped and draped. C-arm was brought to the field, confirmed there was no fracture fragments as had been seen in clinic. We then gave the patient 10 mL of 0.5% Marcaine block, exsanguinated the limb, inflated tourniquet to 250 mmHg pressure. I then made a box type cut over the distal interphalangeal joint with a transverse limb just proximal to the joint, the excellent 2 mm skin flap in thickness and then exposed the extensor mechanism. We then saw an area of thin tendon just proximal to the joint itself over the chondral surface of the head of the middle phalanx. Here, we made a sharp cut with a knife down to the surface and then saw that the distal portion was intact on the bone. We then saw that she still had 15 degrees of passive joint contracture, so through the joint, using a [place] blade, we released collateral approximately 50% and then released through the joint the volar plate until we could easily achieve 0 extension. Under the C-arm, we passed a 0.045 K-wire across the joint, removed the redundant and stretched tissue for approximately 1.5 mm resection and we then repaired with the joint pinned and the pin cut below the skin level, the extensor mechanism using 5 interrupted 4-0 Prolene in buried [id number] technique. We released the tourniquet. We closed the incision after obtaining hemostasis with interrupted 4-0 nylon in a simple pattern and then placed bacitracin, Adaptic, 4x4 dressing with Kerlix and then placed the patient in an ulnar gutter splint involving the small and ring finger with the wrist at 20 degrees of dorsiflexion and the MP joints at 60 degrees of flexion. The patient left the operating room without evidence of anesthetic or operative complication. Job ID: [id number]
== END 2020-04-21 11:10 | disposition home or self-care (01) ==
LOC: SDC 05:46
PROVIDERS: ATTEND Orthopaedic Surgery Hand Surgery
PROC: 0L880ZZ Division of Left Hand Tendon, Open Approach (ICD-10-PCS; principal; 2020-04-21)
PROC: 0PSV0ZZ Reposition Left Finger Phalanx, Open Approach (ICD-10-PCS; 2020-04-21)
DX: S62.667A Nondisplaced fracture of distal phalanx of left little finger, initial encounter for closed fracture (principal); S66.327A Laceration of extensor muscle, fascia and tendon of left little finger at wrist and hand level, initial encounter; M24.542 Contracture, left hand; M20.012 Mallet finger of left finger(s); E11.40 Type 2 diabetes mellitus with diabetic neuropathy, unspecified; I10 Essential (primary) hypertension; M81.0 Age-related osteoporosis without current pathological fracture; Z79.82 Long term (current) use of aspirin; Z79.83 Long term (current) use of bisphosphonates; Z79.84 Long term (current) use of oral hypoglycemic drugs; Z79.899 Other long term (current) drug therapy; Z88.0 Allergy status to penicillin; Z88.1 Allergy status to other antibiotic agents; Z88.6 Allergy status to analgesic agent; Z91.012 Allergy to eggs; Z91.018 Allergy to other foods; Z91.048 Other nonmedicinal substance allergy status
CPT/HCPCS: 76000; J0702; J1100; J1885; J2250; J2405; J2704; J3010; J3490; S0020

== ENCOUNTER 2020-08-14 08:11 | Outpatient (CLI) | payer MEDICARE, OTHER ==
--- NOTE | 2020-08-14 09:20 | CT ---
CT of the abdomen and pelvis: 08/14/2020 COMPARISON: 03/10/2019 HISTORY: Epigastric pain, history of cholecystectomy, hysterectomy, and appendectomy TECHNIQUE: Axial CT imaging at 5 mm intervals from the lung bases through the pubic symphysis with in travenous and oral contrast. Coronal and sagittal reformatted imaging obtained. FINDINGS: Granulomatous calcifications noted within the left lung base. There is coronary arterial ca lcification and there is calcification of the mitral annulus. No free intraperitoneal air or fluid. Cholecystectomy clips noted. A vague nonspecific inferior anterior hypodense right hepatic lesion not ed on axial image 29 measuring approximately 1.7 cm, not definitely visualized on the prior examination. Splenic granulomata are seen. There is diffuse pancreatic volume loss. The adrenal glands are unremarkable. There are numerous subcentimeter hypodense renal lesions noted bilaterally, the majority of which are too small to characterize. These likely represent small bilateral renal cysts. Diverticulosis of the sigmoid colon and to a lesser degree, the descending colon, with no evidence fo r diverticulitis. Stable prominent fatty density in the region of the ileocecal valve and superior to the ileocecal ena ve with intraluminal lipoma measuring up to 3.4 cm within the cecum/proximal ascending colon. No evidence for focal bowel inflammatory change or bowel obstruction. Extensive atherosclerotic calcification of the abdominal aorta and its branches. 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 There is mild aneurysmal dilatation of the abdominal aorta at the diaphragmatic hiatus measuring in the 3.2 cm range and at the level of the celiac artery origi n measuring in the 3.3 cm range. Extensive atherosclerotic calcification is seen involving the arterial structures of the pelvis. No abdominal or pelvic lymphadenopathy is noted. No acute osseous abnormality is noted. IMPRESSION: Hypodense liver lesion measuring up to 1.7 cm, not discretely visualized on the prior exa m. This could be related to phase of contrast administration or interval development. This could be better assessed with follow-up abdominal MRI using hepatic mass protocol. Abdominal aortic aneurysm as detailed above. Granulomatous disease and atherosclerotic disease. Intraluminal lipoma measuring up to 3.5 cm within the colon just superior to the ileocecal valve.
== END 2020-08-14 08:12 | disposition home or self-care (01) ==
LOC: BICCT 08:11
PROVIDERS: ATTEND Family Medicine
DX: R10.13 Epigastric pain (principal); R63.4 Abnormal weight loss; K76.9 Liver disease, unspecified; I71.4 Abdominal aortic aneurysm, without rupture; I70.0 Atherosclerosis of aorta; D73.89 Other diseases of spleen; D17.5 Benign lipomatous neoplasm of intra-abdominal organs; I70.8 Atherosclerosis of other arteries
CPT/HCPCS: 74177; 82565

== ENCOUNTER 2020-08-25 10:11 | Outpatient (CLI) | payer MEDICARE, OTHER ==
--- NOTE | 2020-08-25 11:55 | MRI ---
MR abdomen with and without IV contrast INDICATION: Right hepatic lobe liver lesion TECHNIQUE: Multiplanar, multisequence MR images were obtained of the abdomen with and without IV cont rast. Contrast: 15 cc MultiHance. COMPARISON: CT abdomen and pelvis dated August 14, 2019 and a CTA aortic evaluation with bilateral lo wer extremity runoff noted October 15, [address] the chest abdomen and pelvis dated March 10, 2019 FINDINGS: Respiratory motion artifact heavily degrades the image detail. Liver: The hypodense lesion seen recently, adjacent to the gallbladder fossa was not well seen on a r ecent CT the chest abdomen and pelvis dated March 10, 2019, likely related to phase of contrast administration, but was present on a prior CTA of the aorta with bilateral lower extremity runoff alise suring approximately 2.5 cm on this prior exam. This was also likely present on [address] exam of the abdomen and pelvis. The respiratory motion artifact heavily degrades image detail within this region on the current MR exam. No definite suspicious signal abnormality or region of enhancement is noted in this region of the right hepatic lobe. Gallbladder: Surgically absent Pancreas: Normal. Adrenal glands: Normal. Kidneys: There are small bilateral renal cysts. No hydronephrosis. Spleen: Upper limits of normal. Spleen size: 12.7 cm. Lymphadenopathy or free fluid: None Vasculature: Appropriate flow voids are demonstrated. Bowel: Visualized bowel appears within normal limits. Osseous structures: No signal abnormality evident. IMPRESSION: 1. Some limitations to the exam as above. 2. The small hypodense lesion seen adjacent to the gallbladder fossa within the right hepatic lobe li s been stable since 2017 and is suspicious for either a focal area of fatty deposition or possibly a small atypical hemangioma. 3. Bilateral renal cysts
[2020-08-25] MEDS ORDERED: Magnevist 469MG/ML 20 ML VIAL ONE (14:10)
== END 2020-08-25 10:12 | disposition home or self-care (01) ==
LOC: BICMRI 10:11
PROVIDERS: ATTEND Physician Assistant Medical
DX: R10.13 Epigastric pain (principal); R93.3 Abnormal findings on diagnostic imaging of other parts of digestive tract; D64.9 Anemia, unspecified; D52.9 Folate deficiency anemia, unspecified; R89.1 Abnormal level of hormones in specimens from other organs, systems and tissues
CPT/HCPCS: 74183; A9579

== ENCOUNTER 2021-05-13 14:48 | Outpatient (CLI) | payer MEDICARE, OTHER ==
[2021-05-13 15:47] LABS: Hemoglobin 7.2 g/dL (12.0-15.5); Mean Corpuscular HGB CONC 27.5 g/dL (32.0-36.0); Mean Corpuscular Hemoglobin 19.5 pg (27.0-33.0); Mean Corpuscular Volume 70.8 fl (81.6-98.3); Mean Platelet Volume 10.5 fl (7.4-10.4); Platelet Count 313 10x3/uL (150-450); RBC Distribution Width 20.8 % (11.5-14.5); White Blood Cell (WBC) Count 7.3 10x3/uL (3.5-10.5)
[2021-05-13 16:35] LABS: Anisocytosis SLIGHT = 6-15 cells (100X) (0-5/hpf); Elliptocytes SLIGHT = 2-5 cells (100X) (0-1/hpf); Hypochromia MODERATE=16-30 cells (100X) (0-5/hpf); Macrocytosis SLIGHT = 6-15 cells (100X) (0-5/hpf); Microcytosis SLIGHT = 6-15 cells (100X) (0-5/hpf); Ovalocytes SLIGHT = 2-5 cells (100X) (0-1/hpf); Polychromasia SLIGHT = 2-3 cells (100X) (0-2/hpf); Target Cells SLIGHT = 2-5 cells (100X) (0-1/hpf)
[2021-05-13 16:37] LABS: Platelet Morphology Comment Appears Adequate
[2021-05-13 16:39] LABS: #Eosinphils 0.1 10x3/uL (0.0-0.5); #Monocytes 0.7 10x3/uL (0.0-1.1); #Neutrophils 4.7 10x3/uL (1.5-8.4); %Basophils 0.5 % (0.0-2.0); %Eosinophils 1.2 % (0.0-6.0); %Lymphocytes 23.6 % (18.0-47.0); %Monocytes 9.7 % (0.0-10.0); %Neutrophils 64.5 % (40.0-75.0)
[2021-05-14 08:32] LABS: SARS-CoV-2 PCR by NAA Not Detected (NotDetected)
== END 2021-05-13 14:49 | disposition home or self-care (01) ==
LOC: LABBT 14:48
PROVIDERS: ATTEND Orthopaedic Surgery Hand Surgery
DX: Z01.812 Encounter for preprocedural laboratory examination (principal); C44.629 Squamous cell carcinoma of skin of left upper limb, including shoulder; Z20.822 Contact with and (suspected) exposure to COVID-19
CPT/HCPCS: 85025; U0003; U0005

== ENCOUNTER 2021-05-17 15:24 | Day surgery (SDC) | payer MEDICARE, OTHER ==
[2021-05-14 12:02] VITALS: BMI 27.6
[2021-05-17] MEDS ORDERED: Fentanyl 100 MCG/2 ML VIAL ONE (17:44)
[2021-05-17] MEDS ORDERED: Mineral Oil Sterile 10 ML VIAL ONE (17:56)
[2021-05-17] MEDS ORDERED: Bupivacaine PF 0.5% 30 ML VIAL ONE (17:56)
[2021-05-17] MEDS ORDERED: Thrombin 5000 UNITS/5 ML VIAL ONE (17:56)
[2021-05-17] MEDS ORDERED: Bacitracin Zinc Ointment 30 gm TUBE ONE (17:56)
[2021-05-17] MEDS ORDERED: Dexamethasone 20 MG/5 ML VIAL ONE (18:18)
[2021-05-17] MEDS ORDERED: ePHEDrine 50 MG/ML VIAL ONE (18:18)
[2021-05-17] MEDS ORDERED: Rocuronium Bromide 10 MG/ML (10ML VIAL) ONE (18:18)
[2021-05-17] MEDS ORDERED: PROPOFOL 200 MG/20 ML VIAL ONE (18:18)
[2021-05-17] MEDS ORDERED: Ondansetron PF 4 MG/2 ML Vial ONE (18:18)
[2021-05-17] MEDS ORDERED: Lidocaine 1% PF 5 ML VIAL ONE (18:18)
[2021-05-17] MEDS ORDERED: PHENYLEPHRINE-NS 100 MCG/ML 10 ML SYRINGE ONE ×3 (18:18→20:04)
[2021-05-17] MEDS ORDERED: Acetaminophen/Codeine 30-300mg Tablet ONE (21:56)
== END 2021-05-17 22:10 | disposition home or self-care (01) ==
LOC: SDC 15:24
PROVIDERS: ATTEND Orthopaedic Surgery Hand Surgery
PROC: 0HRGX74 Replacement of Left Hand Skin with Autologous Tissue Substitute, Partial Thickness, External Approach (ICD-10-PCS; principal; 2021-05-17)
DX: C44.629 Squamous cell carcinoma of skin of left upper limb, including shoulder (principal); T84.84XA Pain due to internal orthopedic prosthetic devices, implants and grafts, initial encounter; I10 Essential (primary) hypertension; E11.40 Type 2 diabetes mellitus with diabetic neuropathy, unspecified; M21.372 Foot drop, left foot; M81.0 Age-related osteoporosis without current pathological fracture; E11.51 Type 2 diabetes mellitus with diabetic peripheral angiopathy without gangrene; I70.213 Atherosclerosis of native arteries of extremities with intermittent claudication, bilateral legs; E89.0 Postprocedural hypothyroidism; Z87.891 Personal history of nicotine dependence; Z79.83 Long term (current) use of bisphosphonates; Z79.84 Long term (current) use of oral hypoglycemic drugs; Z79.899 Other long term (current) drug therapy; Z88.0 Allergy status to penicillin; Z88.1 Allergy status to other antibiotic agents; Z88.6 Allergy status to analgesic agent; Z91.012 Allergy to eggs; Z91.02 Food additives allergy status; Z91.048 Other nonmedicinal substance allergy status
CPT/HCPCS: 88305; 88331; 93005; 93010; J1100; J2405; J2704; J3010; J3490; S0020